=== PATIENT | female | born 1965 | race African-American/Black ===

== ENCOUNTER 2020-10-02 11:53 | Emergency (ER) | payer OTHER, SELFPAY ==
[2020-10-02] VITALS (18 sets, daily range): BP systolic 122–179; BP diastolic 89–156; PULSE 96–129; RESP 12–20; TEMP 36.4–36.6; O2SAT 94–100
--- NOTE | ~2020-10-02 | CT_ITS ---
EXAMINATION: CTA brain carotid EXAM DATE: 10/02/2020 13:30 INDICATION: Dizziness, slurred speech, unsteady gait. TECHNIQUE: Noncontrast head CT. Spiral CTA of the carotid arteries was performed with intravenous i njection 100 cc of Omnipaque 350. Axial, coronal, sagittal reformatted images reviewed. Additional r eformatted images created on dedicated 3-D workstation. NASCET comparable standard used to assess th e degree of arterial stenosis. Spiral CT angiogram cerebral arteries performed with the same intrave nous injection of contrast. Source images of the brain CTA transferred to dedicated workstation for 3 -D rotational image creation. Coronal, sagittal maximum intensity pixel images also reviewed. The d ose-length product (DLP) for this examination was 1905.70 mGy-cm. The exposure was tailored accordi ng to patient size, and iterative reconstruction (ASIR) was used as additional dose reduction techniq ue. There is no prior study for comparison. FINDINGS: There is 0% carotid stenosis bilaterally. The left vertebral artery is dominant. Carotid si phons are unremarkable. There is no carotid or vertebral basilar arterial dissection or fibromuscula r dysplasia. There are no cerebral artery aneurysms. There is symmetric cerebral artery arborization. The sagittal, transverse and sigmoid sinuses enhance normally, no venous sinus thrombosis. Internal cerebral veins also enhance normally. There is no acute intraparenchymal hemorrhage. No evidence of intraparenchymal brain mass lesion. N o evidence of acute infarction. There is no mass effect or midline shift. There is no obstructive hyd rocephalus suspected. There are no extra-axial collections. There are no calvarial acute fractures. Moderate cervical disc disease C5-6 and C6-7. Up to moderate arthropathy. Lung apices are clear. IMPRESSION: No acute carotid or intracranial findings. Reviewed, dictated and finalized at location B. BUILDER
--- NOTE | 2020-10-02 12:22 | ECG_ITS ---
Measurements Intervals [place] Rate: 120 P: 50 OR: 177 QRS: 56 QRSD: 103 T: 39 QT: 430 QTc: 608 Interpretive Statements SINUS TACHYCARDIA NONSPECIFIC T-WAVE ABNORMALITY- DIFFUSE LEADS BASELINE ARTIFACT- I, II, AVR ABNORMAL ECG Electronically Signed On 10-02-2020 12:54:53 SHOE CLERK by Jorge Luis Uribe D.O.
[2020-10-02 12:34] LABS: Basophils Percent Auto 0.5 % (0.2-1.2); Eosinophils Absolute Auto 0.3 K/mm3 (0-0.3); Eosinophils Percent Auto 3.4 % (0-4.4); Hematocrit 42.4 % (37.0-47.0); Hemoglobin 14.5 g/dL (12.0-15.0); Immature Granulocyte Absolute 0.03 K/mm3 (0.00-0.031); Immature Granulocyte Percent A 0.3 % (0-0.5); Lymphocytes Percent Auto 26.2 % (18.3-44.2); Mean Corpuscular HGB Conc 34.2 g/dl (32-36); Mean Corpuscular Hemoglobin 29.5 pg (26-34); Mean Corpuscular Volume 86.4 fl (80-100); Mean Platelet Volume 9.5 fl (7.4-10.4); Monocytes Absolute Auto 0.7 K/mm3 (0.1-0.6); Monocytes Percent Auto 7.8 % (2.6-8.5); Neutrophils Absolute Auto 5.4 K/mm3 (1.3-6.7); Neutrophils Percent Auto 61.8 % (45.5-73.1); Platelet Count Result 216 k/mm3 (150-375); Red Blood Count 4.91 M/mm3 (4.2-5.4); Red Cell Distribution Width 12.7 % (11.5-14.5); White Blood Count 8.8 K/mm3 (4.5-10.0)
[2020-10-02 12:39] LABS: Glucose Point of Care 316 (65-105)
[2020-10-02 12:44] LABS: INR 0.9; Prothrombin Time 12.4 Seconds (11.1-14.7)
[2020-10-02 12:45] LABS: Partial Thromboplastin Time 25.6 SECONDS (22.3-36.8)
[2020-10-02 12:47] LABS: Alanine Aminotransferase 27 U/L (4-35); Albumin Level 4.1 g/dL (3.5-5.1); Alkaline Phosphatase 102 U/L (38-126); Anion Gap 11 mmol/L (8-16); Aspartate Amino Transferase 27 U/L (14-36); Bilirubin,Total 0.3 mg/dL (0.2-1.3); Blood Urea Nitrogen 19 mg/dL (7-17); Calcium 9.4 mg/dL (8.4-10.2); Carbon Dioxide 22 mmol/L (22-30); Chloride 104 mmol/L (98-107); Estimated CRCL calculation 97 ml/min; Estimated Glomerular Filt Rate > 60; Glucose 326 mg/dL (65-105); Potassium 4.2 mmol/L (3.4-5.0); Sodium 137 mmol/L (137-145)
[2020-10-02 12:57] LABS: Troponin I < 0.012 ng/mL (0.000-0.034)
--- NOTE | 2020-10-02 14:08 | ED.DIZZY ---
HPI - Dizziness General Chief Complaint: Neuro Symptoms/Deficit Stated Complaint: fatigue. loss of balance Time Seen by Provider: 10/02/20 12:09 Source: patient Mode of arrival: ambulatory Limitations: no limitations History of Present Illness HPI Narrative: Patient is a 54-year-old female complaining of sudden onset of dizziness and lightheadedness and states that she had difficulty walking due to it. Patient also states that she had some slurred speech. Patient midst of taking Ambien the night before. Patient states that she is also been a lot of stress lately, has not slept well and that is why she took her Ambien. Patient denies any visual disturbance, focal weakness or numbness, chest pain, shortness of breath, bowel pain, nausea, vomiting, diarrhea, fever or chills. Related Data Home Medications Medication Instructions Recorded Confirmed Ambien 1 tablet HS 10/02/20 amitriptyline 50 mg PO HS 10/02/20 10/02/20 atorvastatin 10 mg PO DAILY 10/02/20 10/02/20 dulaglutide [Trulicity] mg SUBCUT WEEKLY 10/02/20 gabapentin 300 mg TID 10/02/20 10/02/20 ibuprofen DAILY 10/02/20 10/02/20 lisinopril-hydrochlorothiazide 1 tablet PO DAILY 10/02/20 10/02/20 metformin 1,000 mg PO BID 10/02/20 10/02/20 phentermine 37.5 mg DAILY 10/02/20 sitagliptin [Januvia] 100 mg PO DAILY 10/02/20 10/02/20 tramadol 50 mg DAILY 10/02/20 10/02/20 Allergies Allergy/AdvReac Type Severity Reaction Status Date / Time No Known Allergies Allergy Unknown Verified 10/02/20 12:21 Review of Systems Review of Systems: All systems reviewed & are unremarkable except as noted in HPI and below Constitutional: Constitutional: Denies body ache(s), Denies chills, Denies excessive sweating, Denies fatigue, Denies fever(s), Denies headache(s), Denies lethargy, Denies malaise, Denies weakness and Denies weight loss Eyes: Eyes: Denies blurry vision, Denies change in vision and Denies loss of vision ENT: Denies ear discharge, Denies headache(s), Denies lip swelling, Denies epistaxis, Denies nasal congestion, Denies neck pain, Denies throat swelling and Denies tongue swelling Cardiovascular: Cardiovascular: Denies chest pain, Denies chest pain at rest, Denies chest pain with activity, Denies diaphoresis, Denies rapid heart rate, Denies edema, Denies irregular heart rhythm, Denies lightheadedness, Denies palpitations, Denies dyspnea and Denies dyspnea on exertion Respiratory: Respiratory: Denies chest congestion, Denies cough, Denies hemoptysis, Denies dyspnea and Denies dyspnea on exertion Gastrointestinal: Gastrointestinal: Denies abdominal pain, Denies melena, Denies hematochezia, Denies diarrhea, Denies nausea, Denies vomiting and Denies hematemesis Musculoskeletal: Musculoskeletal: Denies abnormal gait, Denies deformity, Denies joint swelling, Denies limited range of motion, Denies neck pain and Denies numbness Neurologic: Denies abnormal gait, Denies confusion, Denies headache(s), Denies focal weakness, Denies loss of vision, Denies numbness, Denies Other visual disturbances, Denies Sensory deficit (Neuro) and Denies weakness Psychiatric: Psychiatric: Denies confusion, Denies depression, Denies auditory hallucinations, Denies homicidal ideation and Denies suicidal ideation Endocrine: Endocrine: Denies cold intolerance, Denies excessive sweating, Denies fatigue, Denies heat intolerance and Denies palpitations Hematologic/Lymphatic: Hematologic/Lymphatic: Denies easy bleeding and Denies easy bruising Allergic/Immunologic: Allergic/Immunologic: Denies lip swelling, Denies throat swelling and Denies tongue swelling PMFSH Comments Past medical history: Hypertension, diabetes, hyperlipidemia Family history: Hypertension diabetes Social history: Non-smoker no EtOH or drug use Exam Const: General: cooperative, healthy appearing, comfortable, no acute distress, well developed, alert and awake; No confusion Orientation/consciousness: oriented to person, oriented to place, orie
--- NOTE | 2020-10-02 15:23 | PC.NURSE ---
Patient ambulated with steady gait, patient more alert but reports fatigue at baseline lately due to trouble sleeping related to stress.
== END 2020-10-02 15:59 | disposition home or self-care (01) ==
PROVIDERS: Emergency Provider Emergency Medicine; PCP Family Medicine
DX: I16.0 Hypertensive urgency (principal); E11.65 Type 2 diabetes mellitus with hyperglycemia; R00.0 Tachycardia, unspecified; Z79.84 Long term (current) use of oral hypoglycemic drugs
CPT/HCPCS: 36415; 70496; 70498; 80053; 82948; 84484; 85025; 85610; 85730; 93005; 99284; Q9967

== ENCOUNTER 2022-05-27 07:47 | Outpatient (CLI) | payer OTHER, SELFPAY ==
--- NOTE | ~2022-05-27 | NM_ITS ---
EXAMINATION: NM hepatobiliary wo pharm DATE: 05/27/2022 13:42 INDICATION: Right upper quadrant abdominal pain. COMPARISON: None. TECHNIQUE: 4.9 mCi Tc-99m mebrofenin (Choletec) was administered intravenously. Scintigraphic images of the abdomen were obtained for one hour. Then, the patient drank 8 oz Ensure, and imaging was cont inued for 60 minutes. FINDINGS: There is normal clearance of radiotracer from the blood pool. There is homogeneous tracer u ptake by the liver. Activity progresses to the bowel and gallbladder. Gallbladder ejection fraction (GBEF) was 13%. Note that with this technique, normal GBEF >= 33%. IMPRESSION: 1. Low gallbladder ejection fraction, consistent with gallbladder dysfunction and/or chronic cholecy stitis. Reviewed, dictated and finalized at location A. IMPRESSION: 1. Low gallbladder ejection fraction, consistent with gallbladder dysfunction and/or chronic cholecystitis.
== END 2022-05-27 07:48 | disposition home or self-care (01) ==
PROVIDERS: PCP Internal Medicine; Visit Provider Nurse Practitioner
DX: K80.20 Calculus of gallbladder without cholecystitis without obstruction (principal)
CPT/HCPCS: 78226; A9537

== ENCOUNTER 2022-06-15 09:41 | Outpatient (CLI) | payer OTHER, SELFPAY ==
[2022-06-15 17:07] LABS: Free T4 Free Thyroxine 0.94 ng/mL (0.78-2.19); Vitamin D 25 Hydroxy 26.2 ng/mL
[2022-06-15 17:08] LABS: Creatinine Urine 60.9 mg/dL
[2022-06-15 17:20] LABS: MALB Creatinine Ratio < 9.9 mg/g (0-30); Microalbumin Urine Random < 6.0 mg/L (0-16.7)
[2022-06-15 17:45] LABS: Anion Gap 17 mmol/L (8-16); Blood Urea Nitrogen 23 mg/dL (7-17); Calcium 10.4 mg/dL (8.4-10.2); Carbon Dioxide 22 mmol/L (22-30); Chloride 99 mmol/L (98-107); Cholesterol 182 mg/dL (0-200); Estimated Glomerular Filt Rate > 60; Glucose 167 mg/dL (65-110); HDL Direct 65 mg/dL; Potassium 3.9 mmol/L (3.4-5.0); Sodium 138 mmol/L (137-145); Triglycerides 185 mg/dL (<150)
[2022-06-15 17:53] LABS: LDL Cholesterol Direct 63 mg/dL
[2022-06-15 18:12] LABS: Thyroid Stimulating Hormone 0.296 uIU/mL (0.465-4.680)
[2022-06-19 06:33] LABS: Triiodothyronine T3 Free 2.6 pg/mL (2.3-4.2)
[2022-06-22 15:13] LABS: Thyroid Stimulating Immunoglob <89 % baseline (<140)
== END 2022-06-15 09:42 | disposition home or self-care (01) ==
LOC: ANHWCLAB 09:42
PROVIDERS: PCP Internal Medicine; Visit Provider Internal Medicine Endocrinology, Diabetes & Metabolism
DX: E11.65 Type 2 diabetes mellitus with hyperglycemia (principal); Z79.4 Long term (current) use of insulin; E11.621 Type 2 diabetes mellitus with foot ulcer; L97.522 Non-pressure chronic ulcer of other part of left foot with fat layer exposed; R79.89 Other specified abnormal findings of blood chemistry; E55.9 Vitamin D deficiency, unspecified; Z71.3 Dietary counseling and surveillance; E04.9 Nontoxic goiter, unspecified
CPT/HCPCS: 36415; 80048; 80061; 82043; 82306; 82607; 84439; 84443; 84445; 84481

== ENCOUNTER 2022-06-30 07:21 | Outpatient (CLI) | payer OTHER, SELFPAY ==
--- NOTE | 2022-06-30 07:34 | ECG_ITS ---
Measurements Intervals [place] Rate: 89 P: 57 ND: 195 QRS: 38 QRSD: 109 T: 56 QT: 348 QTc: 425 Interpretive Statements SINUS RHYTHM POSSIBLE LEFT ATRIAL ENLARGEMENT [-0.1mV P WAVE IN V1/V2] WARNING: DATA QUALITY MAY AFFECT INTERPRETATION COMPARED TO ECG 10/02/2020 12:04:07 SINUS RHYTHM NOW PRESENT Electronically Signed On 06-30-2022 15:30:35 MIS MANAGER by Grisel Blanco M.D.
[2022-06-30 08:03] LABS: Alanine Aminotransferase 39 U/L (6-35); Alkaline Phosphatase 103 U/L (38-126); Amylase 112 U/L (30-110); Anion Gap 8 mmol/L (8-16); Aspartate Amino Transferase 27 U/L (14-36); Bilirubin,Total 0.3 mg/dL (0.2-1.3); Blood Urea Nitrogen 18 mg/dL (7-17); Calcium 9.6 mg/dL (8.4-10.2); Carbon Dioxide 26 mmol/L (22-30); Chloride 103 mmol/L (98-107); Estimated Glomerular Filt Rate > 60; Glucose 214 mg/dL (65-110); Lipase 225 U/L (23-300); Potassium 4.4 mmol/L (3.4-5.0); Sodium 137 mmol/L (137-145)
== END 2022-06-30 07:22 | disposition home or self-care (01) ==
LOC: ANHSURGERY 07:23
PROVIDERS: PCP Nurse Practitioner; Visit Provider Surgery
DX: Z01.818 Encounter for other preprocedural examination (principal); E11.9 Type 2 diabetes mellitus without complications; I10 Essential (primary) hypertension; K80.10 Calculus of gallbladder with chronic cholecystitis without obstruction
CPT/HCPCS: 36415; 80048; 80076; 82150; 83690; 86850; 86900; 86901; 93005

== ENCOUNTER 2022-07-01 00:51 | Day surgery (SDC) | payer OTHER, SELFPAY ==
[2022-06-26 09:29] VITALS: BMI 40.4
--- NOTE | 2022-06-26 09:37 | PC.NURSE ---
Report to the Outpatient Waiting Room, entrance under the green pavilion located off [facility], at time 8:30 on date 07/01/22. Planned Procedure Time: 10:30. Time changes happen often and if your time is changed the preop area will call you the afternoon before. - You and your visitor will be asked to self-screen and do not enter if you have any COVID symptoms. - Only one visitor is requested with a max of two and NO children visitors are allowed at this time. - The patient visitor may be requested to leave or wait in car when not with patient due to distancing restrictions. - A mask is optional within the hospital. Patients may have clear liquids (water, carbonated beverages, clear teas, apple juice) until 3 hours prior to surgery (7:30) with a maximum of 20 ounces. - No food from midnight until time of surgery Take the following medications with a SIP of water the morning of surgery: GABAPENTIN Medications to discontinue per physician: VITAMINS Date to take last dose: 06/27/22 Please no make-up, nail cymraes, hairspray, perfume, deodorant, or body powder the day of surgery. No jewelry (including any body piercings) or valuables the day of surgery, leave them at home. Please take a shower or bath the night before, or the morning of, surgery with an antibacterial soap (HIBICLENS). Wear comfortable, loose fitting clothing. - Jewelry must be removed prior to entering the operating room. Rings and piercings that are not removed may be cut off. - The hospital will not accept responsibility for valuables. - Please leave all valuables, including medications, at home the day of surgery. If you are going home after surgery, a licensed fork truck driver must drive you home. - NO public transportation without another adult if you receive anesthesia. - We recommend that an adult stay with you for 24 hours following discharge. - We also recommend that you do not drive, make important decision, drink alcoholic beverages, or take any drugs that were not prescribed by your health care provider for at least 24 hours after your discharge time. Follow any additional instructions given to you from your surgeon. If you or anyone in your household have experienced Covid symptoms in the past week, please notify your surgeon or the nurse liaison at the phone number below for possible testing. Telephone instructions given to PT - ITZ SHAYE and asked if any additional questions and then verbalized understanding. Patient advised to call surgeon office or pre surgery nurse liaison [phone] if any additional questions.
[2022-07-01] VITALS (8 sets, daily range): BP systolic 115–153; BP diastolic 70–97; PULSE 70–91; RESP 16–20; TEMP 36.5–36.6; O2SAT 96–100
--- NOTE | ~2022-07-01 | XR_ITS ---
XR cholangiogram surg 1st inj DATE: 07/01/2022 12:12 INDICATION: Stacy cholecystectomy TECHNIQUE: 2 series of spot C-arm images of the right upper quadrant during injection of contrast mat erial into the cystic duct remnant at laparoscopic cholecystectomy 28.9 seconds fluoroscopy time 24.28 mGy COMPARISON: None FINDINGS: No stricture or obstruction of the common bile duct or persistent filling defect is evident . Contrast material flows freely into the duodenum. IMPRESSION: No significant abnormality Reviewed, dictated and finalized at Location A. Reviewed, dictated and finalized at location B. TRONICS ENGINEER IMPRESSION: No significant abnormality
[2022-07-01] MEDS: KETOROLAC 15 MG/ML VIAL (*BKC) IV PUSH (09:00)
[2022-07-01] MEDS: ACETAMINOPHEN 500 MG TABLET 1000 MG PO (09:00)
[2022-07-01] MEDS: LACTATED RINGERS 1,000 ML 30 ML IV CONT ×2 (09:00→11:57)
--- NOTE | 2022-07-01 09:15 | WPDANESEPPF ---
Anes - Initial Pre Proc Eval Procedure: Operation Date: 07/01/22 10:30 Proposed Procedures p Laparoscopic Cholecystectomy with Intraoperative Cholangiogram - Karthik Conde MD Date/Time: 07/01/22 09:15 Surgeon: Karthik Conde MD Pre Op Diagnosis: chronic cholecystitis with stones Patient Data Age: 56 Gender: F Height: 1.75 m Weight: 124.3 kg Allergies Allergy/AdvReac Type Severity Reaction Status Date / Time No Known Allergies Allergy Unknown Verified 06/26/22 09:25 Home Medications Medication Instructions Recorded Confirmed Type atorvastatin 10 mg tablet 10 mg PO DAILY 10/02/20 06/26/22 History canagliflozin 300 mg tablet See Rx Instructions .Route 01/29/22 06/26/22 Rx (Invokana) .COMPLEX #90 tabs lisinopril 20 See Rx Instructions .Route 01/29/22 06/26/22 Rx mg-hydrochlorothiazide 12.5 mg .COMPLEX #90 tabs tablet cyclobenzaprine 10 mg tablet See Rx Instructions .Route 03/24/22 06/26/22 Rx .COMPLEX #30 tabs amitriptyline 50 mg tablet See Rx Instructions .Route 03/31/22 06/26/22 Rx .COMPLEX #90 tabs metformin 500 mg tablet,extended See Rx Instructions .Route 03/31/22 06/26/22 Rx release 24 hr .COMPLEX #360 tabs ibuprofen 800 mg tablet See Rx Instructions .Route 05/21/22 06/26/22 Rx .COMPLEX #30 tabs blood-glucose sensor (FreeStyle #1 ea 06/15/22 06/15/22 Rx Mark 3 Sensor device) gabapentin 600 mg tablet 600 mg PO TID 90 days #270 tabs 06/15/22 06/26/22 Rx glucose 4 gram chewable tablet 16 g PO Q15M PRN hypoglycemia #90 06/15/22 06/26/22 Rx (Dex4 Glucose) tabs insulin degludec 100 unit/mL (3 30 unit (0.3 mL) subcut QHS 90 06/15/22 06/26/22 Rx mL) subcutaneous pen (Tresiba days #27 mL FlexTouch U-100 insulin) insulin lispro 200 unit/mL (3 mL) See Rx Instructions subcut TID #27 06/15/22 06/26/22 Rx subcutaneous pen (Humalog KwikPen mL U-200 Insulin) semaglutide 1 mg/dose (4 mg/3 mL) 1 mg (0.75 mL) subcut WEEKLY 90 06/15/22 06/26/22 Rx subcutaneous pen injector (Ozempic) days #9.75 mL zolpidem 10 mg tablet (Ambien) 10 mg PO QHS PRN insomnia #30 tabs 06/16/22 06/26/22 Rx pen needle, diabetic 32 gauge x #500 ea 06/17/22 Rx (TRUEplus Pen Needle) cholecalciferol (vitamin D3) 1,250 1,250 mcg PO WEEKLY 14 weeks #14 06/28/22 Rx mcg (50,000 unit) tablet tabs Patient hx anesthesia problems: none Family hx anesthesia problems: none Results Review: All pre-operative results and documents have been reviewed as part of the pre-operative evaluation. [facility] Past Medical History Medical History Arthritis Diabetes mellitus Hyperlipidemia Hypertension Hyperthyroidism Obesity Surgical History Surgical History Fibroid tumor History excision uterine fibroid tumor History of History of partial hysterectomy Family History Family History Mother Carcinoma of colon with mets to the liver and brain Sibling Asthma Esophageal cancer Bone cancer Breast cancer Epilepsy Malignant neoplasm of prostate Other Hypertension Social History Social History Smoking status: Never smoker Alcohol intake: former Alcohol use details: rare, socially Substance use: never Substance use type: does not use Living arrangements: with family Additional living arrangements comments: SON Spiritual care concerns: No Anes - Eval Final PreProcedure Day of Procedure 07/01/22 09:15 Patient weight: morbidly obese Heart: regular rate and rhythm Lungs: clear to auscultation Airway: Mallampati scale class II Neurological: alert and oriented Last oral intake: >/= 8 hours ASA classification: III Emergent: no Anesthetic plan: proceed Anesthesia type and monitoring: general ETT and standard monitoring Res
[2022-07-01 09:39] LABS: Glucose Point of Care 186 mg/dl (65-105)
--- NOTE | 2022-07-01 09:55 | WPDHPUPDATE1 ---
History and Physical Update Update Date/Time: 07/01/22 09:55 History and Physical has been reviewed, including an updated exam of the patient. There are NO changes in the patient's condition. Risks, benefits, and alternatives have been discussed and questions answered. Patient agrees to proceed with procedure.
[2022-07-01] MEDS: SCOPOLAMINE 1.5 MG PATCH TRANSDERM (10:07)
[2022-07-01] MEDS: ceFAZolin 3 GM/D5W 100 ML 100 ML IVPB (10:16)
[2022-07-01] MEDS: LIDO 1%/EPINEPHRINE/PF 1:200,000 30 ML VIAL XX (10:57)
[2022-07-01 12:12] LABS: Glucose Point of Care 213 mg/dl (65-105)
--- NOTE | 2022-07-01 12:16 | W.PM.PROC2 ---
Procedure Note - Detailed Date of Procedure 07/01/22 Pre-op Diagnosis chronic cholecystitis with stones Post-op Diagnosis Same Procedure Performed Laparoscopic cholecystectomy with intraoperative cholangiogram Surgeon Karthik Conde MD Chemical Research Worker Chloé HERNANDEZ, Marie Kim TEAROOM HOST Anesthesia General and Local Indications Patient is a 56-year-old woman who has had postprandial pain for 12-18 months. However in the last couple of months this has gotten worse and was in the right upper quadrant. It was particularly bad after fatty foods. She had a gallbladder ultrasound which showed gallstones and also a 10 mm common bile duct. Liver function tests were normal. She is taken to surgery now for laparoscopic cholecystectomy with intraoperative cholangiogram. Findings The gallbladder had evidence of chronic inflammation. There was no biliary ductal dilatation. Liver appeared normal. Intraoperative cholangiogram showed prompt duodenal filling and no filling defects to suggest common bile duct stones. Description of Procedure Patient was taken to surgery and induced into general anesthesia. The abdomen is prepped and draped. Trocars were placed in the usual fashion using applied Medical optical trocars and local anesthetic. The gallbladder was decompressed with a laparoscopic aspirator. It was retracted anterosuperiorly. Dissection was carried out in the cholecystohepatic triangle. The cystic duct and cystic artery were dissected. The gallbladder was dissected off the liver its lower 3rd. Critical view was achieved. I then securely clipped and divided the cystic artery. I dissected out nearly all of the cystic duct. A clip was placed in the distal gallbladder just above the cystic duct. I then used cystic duct scissors and made a small opening in the proximal cystic duct. Cholangiogram catheter was then threaded into the cystic duct. C-arm fluoroscopy was used and cholangiogram was obtained. Cine fluoroscopy showed a negative cholangiogram. Radiology reviewed the films and concurred. The cholangiogram catheter was removed. We securely clipped and divided the cystic duct. The gallbladder was then carefully dissected free of its remaining attachments to the liver. It was placed in an Endo-Catch bag. It was retrieved through the 10 11 epigastric trocar site. There was a large stone in the gallbladder and I had to slightly enlarge the epigastric trocar site to accommodate the gallbladder with the stone. Once the gallbladder was removed, we replaced the epigastric trocar and used a towel clip to occlude the site so that we could reinsufflated. We then reviewed the gallbladder fossa and right upper quadrant. The area was irrigated and suctioned repeatedly. All looked good with no evidence of bleeding or bile leakage. We then evacuated CO2 and removed the trocar sleeves. The fascia at the epigastric port site was closed with an 0 Vicryl suture. The subcu was closed with 3-0 Vicryl suture. All skin wounds were closed with subcuticular 4-0 Monocryl skin suture. The wounds were dressed with Exofin surgical adhesive. Patient was awakened and taken to recovery in good condition. Sponge and needle counts were correct x2. Estimated Blood Loss -5.0 Drains No Packing No Pathology Yes (Gallbladder) Complications No immediate complications Condition Stable Disposition PACU [facility] Billing Surgery - Charge Forward: Surgery Billing (Laparoscopic cholecystectomy with intraoperative cholangiogram)
[2022-07-01] MEDS: oxyCODONE HCL (*CRX) 5 MG TAB IR PO (13:15)
== END 2022-07-01 14:30 | disposition home or self-care (01) ==
PROVIDERS: PCP Nurse Practitioner; Visit Provider Surgery
PROC: 0FT44ZZ Resection of Gallbladder, Percutaneous Endoscopic Approach (ICD-10-PCS; CPT 47562; principal; 2022-07-01 10:30)
DX: K80.10 Calculus of gallbladder with chronic cholecystitis without obstruction (principal); E11.9 Type 2 diabetes mellitus without complications; E78.5 Hyperlipidemia, unspecified; I10 Essential (primary) hypertension; E66.01 Morbid (severe) obesity due to excess calories; Z68.41 Body mass index [BMI] 40.0-44.9, adult; Z79.84 Long term (current) use of oral hypoglycemic drugs; Z79.4 Long term (current) use of insulin; Z79.899 Other long term (current) drug therapy
CPT/HCPCS: 47563; 74300; 82948; 88304; A9270; C1713; J0330; J0690; J1100; J1885; J2250; J2370; J2405; J2704; J2710; J3010; J7120

== ENCOUNTER 2022-07-23 15:00 | Outpatient (RCR) | payer OTHER, SELFPAY | END 2022-10-12 13:49 | disposition home or self-care (01) | LOC: ANHDMC 15:00 | PROVIDERS: PCP Internal Medicine; Visit Provider Internal Medicine Endocrinology, Diabetes & Metabolism | DX: E11.65 Type 2 diabetes mellitus with hyperglycemia (principal); Z79.4 Long term (current) use of insulin | CPT/HCPCS: 99199 ==

== ENCOUNTER 2022-08-10 15:00 | Outpatient (CLI) | payer OTHER, SELFPAY ==
--- NOTE | ~2022-08-10 | XR_ITS ---
XR lumbar spine 2-3V 08/10/2022 15:19 Indication: Low back pain Procedure: 3 views lumbar spine Comparison: No prior studies for comparison. Findings: Vertebral body heights are maintained. There is disc narrowing at L4-5 and L5-S1 with vacuu m phenomena. There is advanced multilevel facet hypertrophy. No acute fracture or traumatic malalignm ent. No evidence for spondylolisthesis. Impression: 1: Severe lumbar spondylosis. Reviewed, dictated and finalized at location A. NESS TECHNOLOGY ANALYST Impression: 1: Severe lumbar spondylosis.
== END 2022-08-10 15:01 | disposition home or self-care (01) ==
LOC: ANHIMG 15:03
PROVIDERS: PCP Internal Medicine; Visit Provider Nurse Practitioner
DX: M47.816 Spondylosis without myelopathy or radiculopathy, lumbar region (principal); M54.50 Low back pain, unspecified
CPT/HCPCS: 72100

== ENCOUNTER 2022-09-07 10:53 | Outpatient (CLI) | payer OTHER, SELFPAY ==
--- NOTE | ~2022-09-07 | MR_ITS ---
MRI of the lumbar spine Clinical History: Back pain Technique: Axial T2-weighted images, and sagittal T1-weighted, T2-weighted, and T2 fat-sat images wer e acquired. Findings: There is no fracture or subluxation of the lumbar spine. Vertebral bodies maintain normal h eight and prominent. There are reactive marrow signal changes about the L4-L5 and L5-S1 disc spaces d ue to underlying degenerative disc disease. At L1-L2, there is no disc bulge or herniation. There is facet joint degenerative change. No spinal c anal stenosis or neural foraminal narrowing. At L2-L3, there is no disc bulge or herniation. There is facet joint degenerative change. No spinal c anal stenosis or neural foraminal narrowing. At L3-L4, there is minimal disc bulge with advanced facet joint arthropathy. No spinal canal stenosis or neural foraminal narrowing. At L4-L5, there is disc bulge and advanced facet arthropathy, with advanced degenerative disc narrowi ng. There is lateral recess stenosis bilaterally. There is moderate to advanced bilateral neural fora priya narrowing. No aaron spinal canal stenosis otherwise. At L5-S1, there is diffuse disc bulge with facet arthropathy. No spinal canal stenosis. There is aquilino re bilateral neural foraminal narrowing. Paravertebral soft tissues are unremarkable. Impression: Disc bulge and facet arthropathy L4-L5 resulting in lateral recess stenosis and moderate to advanced bilateral neural foraminal narrowing. Disc bulge and facet arthropathy at L5-S1, resulting in severe bilateral neural foraminal narrowing. Reviewed, dictated and finalized at [facility]. 4TH GRADE MATH TEACHER Impression: Disc bulge and facet arthropathy L4-L5 resulting in lateral recess stenosis and moderate to advanced bilateral neural foraminal narrowing. Disc bulge and facet arthropathy at L5-S1, resulting in severe bilateral neural foraminal narrowing.
== END 2022-09-07 10:54 | disposition home or self-care (01) ==
PROVIDERS: PCP Internal Medicine; Visit Provider Nurse Practitioner
DX: M47.817 Spondylosis without myelopathy or radiculopathy, lumbosacral region (principal)
CPT/HCPCS: 72148

== ENCOUNTER 2022-10-21 00:44 | Day surgery (SDC) | payer OTHER, SELFPAY ==
[2022-09-29 09:36] VITALS: BMI 40.7
[2022-09-29 09:43] VITALS: BMI 40.7
--- NOTE | 2022-10-20 17:57 | PM.HPGS ---
History of Present Illness History of Present Illness Consent: Risks, benefits, and alternatives have been discussed and questions answered. Patient agrees to proceed with procedure. Chief complaint: neoplasm screening Narrative: Ivania Feldman is a 57 year old female referred for colon cancer screening. Review of Systems Review of Systems: All systems reviewed & are unremarkable except as noted in HPI and below PMFSH Past Medical History Medical History Arthritis Cervicalgia Chronic cholecystitis with calculus Diabetic foot ulcer associated with type 2 diabetes mellitus, with fat layer exposed Dysfunctional gallbladder Hyperlipidemia Hypersomnolence Hypertension Hyperthyroidism Morbid obesity with BMI of 40.0-44.9, adult Obesity Type 2 diabetes mellitus with hyperglycemia, with long-term current use of insulin Vitamin D deficiency Surgical History Surgical History Fibroid tumor History excision uterine fibroid tumor History of History of partial hysterectomy Hx laparoscopic cholecystectomy 07/01/22 Laparoscopic cholecystectomy with intraoperative cholangiogram Family History Family History Mother Carcinoma of colon with mets to the liver and brain Sibling Asthma Esophageal cancer Bone cancer Breast cancer Epilepsy Malignant neoplasm of prostate Other Hypertension Other Alcoholism Cerebrovascular accident Social History Social History Smoking status: Never smoker Alcohol intake: former Alcohol use details: rare, socially Substance use: never Substance use type: does not use Lack of Transportation: No Lack of Food: Never True Concerned About Future Housing: YES Difficulty Paying Gas/Electric Bills: No Difficulty Paying for Meds: No Currently Unemployed: YES Education: High School Diploma/GED Difficulty w/ Childcare or Family Care: No Living arrangements: with family Additional living arrangements comments: SON Gender identity (if verbalized by the patient): Female Sexual Orientation (if Verbalized by the Patient): Straight or Heterosexual Spiritual care concerns: No Meds Home Medications and Allergies Home Medications Medication Instructions Recorded Confirmed Type atorvastatin 10 mg tablet 10 mg PO DAILY 10/02/20 10/19/22 History amitriptyline 50 mg tablet See Rx Instructions .Route 03/31/22 10/19/22 Rx .COMPLEX #90 tabs gabapentin 600 mg tablet 600 mg PO TID 90 days #270 tabs 06/15/22 10/19/22 Rx insulin degludec 100 unit/mL (3 30 unit (0.3 mL) subcut QHS 90 06/15/22 10/19/22 Rx mL) subcutaneous pen (Tresiba days #27 mL FlexTouch U-100 insulin) insulin lispro 200 unit/mL (3 mL) See Rx Instructions subcut TID #27 06/15/22 10/19/22 Rx subcutaneous pen (Humalog KwikPen mL U-200 Insulin) pen needle, diabetic 32 gauge x #500 ea 06/17/22 08/26/22 Rx (TRUEplus Pen Needle) lisinopril 20 See Rx Instructions .Route 07/07/22 10/19/22 Rx mg-hydrochlorothiazide 12.5 mg .COMPLEX #90 tabs tablet canagliflozin 300 mg tablet See Rx Instructions .Route 08/05/22 10/19/22 Rx (Invokana) .COMPLEX #90 tabs metformin 500 mg tablet,extended See Rx Instructions .Route 09/16/22 10/19/22 Rx release 24 hr .COMPLEX #360 tabs zolpidem 10 mg tablet (Ambien) 10 mg PO QHS PRN insomnia #30 tabs 09/16/22 10/19/22 Rx semaglutide 1 mg/dose (4 mg/3 mL) 1 mg subcut WEEKLY 09/29/22 10/19/22 History subcutaneous pen injector (Ozempic) sitagliptin phosphate 100 mg 100 mg PO DAILY 09/29/22 10/19/22 History tablet (Januvia) baclofen 10 mg tablet 10 mg PO BID PRN muscle spasticity 10/02/22 10/19/22 Rx #45 tabs ibuprofen 800 mg tablet 800 mg PO DAILY PRN pain #30 tabs 10/02/22 10/19/22 Rx tramadol 50 mg tablet 50
[2022-10-21 09:36] VITALS: BP 118/81; PULSE 95; RESP 18; TEMP 36.8; O2SAT 96
[2022-10-21] MEDS: LACTATED RINGERS 1,000 ML 150 ML IV CONT (09:48)
--- NOTE | 2022-10-21 09:56 | WPDANESEPPF ---
Anes - Initial Pre Proc Eval Procedure: Operation Date: 10/21/22 11:00 Proposed Procedures p Screening Colonoscopy - Radu Sheriff MD Date/Time: 10/21/22 09:56 Surgeon: Radu Sheriff MD Pre Op Diagnosis: neoplasm screening Patient Data Age: 57 Gender: F Height: 1.77 m Weight: 128 kg Last Vital Signs Temp 98.2 F 10/21/22 09:36 Pulse 95 10/21/22 09:36 Resp 18 10/21/22 09:36 BP 118/81 10/21/22 09:36 Pulse Ox 96 10/21/22 09:36 O2 Del Method Room Air 10/21/22 09:36 Allergies Allergy/AdvReac Type Severity Reaction Status Date / Time No Known Allergies Allergy Unknown Verified 10/21/22 09:36 Home Medications Medication Instructions Recorded Confirmed Type atorvastatin 10 mg tablet 10 mg PO DAILY 10/02/20 10/19/22 History amitriptyline 50 mg tablet See Rx Instructions .Route 03/31/22 10/19/22 Rx .COMPLEX #90 tabs gabapentin 600 mg tablet 600 mg PO TID 90 days #270 tabs 06/15/22 10/19/22 Rx insulin degludec 100 unit/mL (3 30 unit (0.3 mL) subcut QHS 90 06/15/22 10/19/22 Rx mL) subcutaneous pen (Tresiba days #27 mL FlexTouch U-100 insulin) insulin lispro 200 unit/mL (3 mL) See Rx Instructions subcut TID #27 06/15/22 10/19/22 Rx subcutaneous pen (Humalog KwikPen mL U-200 Insulin) pen needle, diabetic 32 gauge x #500 ea 06/17/22 08/26/22 Rx /32 (TRUEplus Pen Needle) lisinopril 20 See Rx Instructions .Route 07/07/22 10/19/22 Rx mg-hydrochlorothiazide 12.5 mg .COMPLEX #90 tabs tablet canagliflozin 300 mg tablet See Rx Instructions .Route 08/05/22 10/19/22 Rx (Invokana) .COMPLEX #90 tabs metformin 500 mg tablet,extended See Rx Instructions .Route 09/16/22 10/19/22 Rx release 24 hr .COMPLEX #360 tabs zolpidem 10 mg tablet (Ambien) 10 mg PO QHS PRN insomnia #30 tabs 09/16/22 10/19/22 Rx semaglutide 1 mg/dose (4 mg/3 mL) 1 mg subcut WEEKLY 09/29/22 10/19/22 History subcutaneous pen injector (Ozempic) sitagliptin phosphate 100 mg 100 mg PO DAILY 09/29/22 10/19/22 History tablet (Januvia) baclofen 10 mg tablet 10 mg PO BID PRN muscle spasticity 10/02/22 10/19/22 Rx #45 tabs ibuprofen 800 mg tablet 800 mg PO DAILY PRN pain #30 tabs 10/02/22 10/19/22 Rx tramadol 50 mg tablet 50 mg PO BID PRN pain #20 tabs 10/02/22 10/19/22 Rx Patient hx anesthesia problems: none Family hx anesthesia problems: none Results Review: All pre-operative results and documents have been reviewed as part of the pre-operative evaluation. FORMERLY [facility] Past Medical History Medical History Arthritis Cervicalgia Chronic cholecystitis with calculus Diabetic foot ulcer associated with type 2 diabetes mellitus, with fat layer exposed Dysfunctional gallbladder Hyperlipidemia Hypersomnolence Hypertension Hyperthyroidism Morbid obesity with BMI of 40.0-44.9, adult Obesity Type 2 diabetes mellitus with hyperglycemia, with long-term current use of insulin Vitamin D deficiency Surgical History Surgical History Fibroid tumor History excision uterine fibroid tumor History of History of partial hysterectomy Hx laparoscopic cholecystectomy 07/01/22 Laparoscopic cholecystectomy with intraoperative cholangiogram Family History Family History Mother Carcinoma of colon with mets to the liver and brain Sibling Asthma Esophageal cancer Bone cancer Breast cancer Epilepsy Malignant neoplasm of prostate Other Hypertension Other Alcoholism Cerebrovascular accident Social History Social History Smoking status: Never smoker Alcohol intake: former Alcohol use details: rare, socially Substance use: never Substance use type: does not use Lack of Transportation: No Lack of Food: Never True Concerned About Future Housing: YES Di
[2022-10-21 10:39] VITALS: BP 119/75; PULSE 92; RESP 25; O2SAT 100
[2022-10-21 10:49] VITALS: BP 116/79; PULSE 87; RESP 19; O2SAT 100
[2022-10-21 10:59] VITALS: BP 117/86; PULSE 85; RESP 20; O2SAT 100
--- NOTE | 2022-10-21 11:14 | SUR.PHASEII ---
350mls of LR received through out total time of being in endoscopy.
== END 2022-10-21 11:15 | disposition home or self-care (01) ==
PROVIDERS: PCP Internal Medicine; Visit Provider Internal Medicine Gastroenterology
PROC: 0DJD8ZZ Inspection of Lower Intestinal Tract, Via Natural or Artificial Opening Endoscopic (ICD-10-PCS; CPT 45378; principal; 2022-10-21 11:00)
DX: Z12.11 Encounter for screening for malignant neoplasm of colon (principal); K57.30 Diverticulosis of large intestine without perforation or abscess without bleeding; K64.8 Other hemorrhoids; I10 Essential (primary) hypertension; E11.9 Type 2 diabetes mellitus without complications; E66.01 Morbid (severe) obesity due to excess calories; Z68.41 Body mass index [BMI] 40.0-44.9, adult; Z79.4 Long term (current) use of insulin; Z79.84 Long term (current) use of oral hypoglycemic drugs; Z79.899 Other long term (current) drug therapy
CPT/HCPCS: 45378; J2704; J7120

== ENCOUNTER 2023-06-15 09:04 | Outpatient (CLI) | payer OTHER, SELFPAY ==
[2023-06-15 19:46] LABS: Alanine Aminotransferase 39 U/L (6-35); Albumin Level 4.2 g/dL (3.5-5.1); Alkaline Phosphatase 102 U/L (38-126); Anion Gap 12 mmol/L (8-16); Aspartate Amino Transferase 41 U/L (14-36); Bilirubin,Total 0.4 mg/dL (0.2-1.3); Blood Urea Nitrogen 20 mg/dL (7-17); Calcium 10.2 mg/dL (8.4-10.2); Carbon Dioxide 24 mmol/L (22-30); Chloride 105 mmol/L (98-107); Cholesterol 157 mg/dL (0-200); Estimated Glomerular Filt Rate > 60; Glucose 147 mg/dL (65-110); HDL Direct 65 mg/dL; Potassium 4.7 mmol/L (3.4-5.0); Sodium 141 mmol/L (137-145); Triglycerides 112 mg/dL (<150)
[2023-06-15 19:52] LABS: Basophils Absolute Auto 0.1 K/mm3 (0.0-0.1); Basophils Percent Auto 0.7 % (0.2-1.2); Eosinophils Absolute Auto 0.3 K/mm3 (0-0.3); Eosinophils Percent Auto 3.3 % (0-4.4); Hematocrit 44.8 % (37.0-47.0); Hemoglobin 14.4 g/dL (12.0-15.0); Immature Granulocyte Absolute 0.02 K/mm3 (0.00-0.031); Immature Granulocyte Percent A 0.2 % (0-0.5); Lymphocytes Absolute Auto 2.19 K/mm3 (0.9-3.2); Lymphocytes Percent Auto 24.3 % (18.3-44.2); Mean Corpuscular HGB Conc 32.1 g/dl (32-36); Mean Corpuscular Hemoglobin 29.1 pg (26-34); Mean Corpuscular Volume 90.7 fl (80-100); Mean Platelet Volume 9.5 fl (7.4-10.4); Monocytes Absolute Auto 0.8 K/mm3 (0.1-0.6); Monocytes Percent Auto 8.4 % (2.6-8.5); Neutrophils Absolute Auto 5.7 K/mm3 (1.3-6.7); Neutrophils Percent Auto 63.1 % (45.5-73.1); Platelet Count Result 235 k/mm3 (150-375); Red Blood Count 4.94 M/mm3 (4.2-5.4); Red Cell Distribution Width 14.4 % (11.5-14.5)
[2023-06-15 20:05] LABS: Vitamin D 25 Hydroxy 32.4 ng/mL
[2023-06-15 20:07] LABS: LDL Cholesterol Direct 61 mg/dL
[2023-06-15 20:15] LABS: Thyroid Stimulating Hormone 0.296 uIU/mL (0.465-4.680)
[2023-06-15 22:09] LABS: Hemoglobin A1C 7.8 % (<5.7)
== END 2023-06-15 09:05 | disposition home or self-care (01) ==
LOC: ANHGOSHLAB 09:06
PROVIDERS: PCP Internal Medicine; Visit Provider Nurse Practitioner
DX: E55.9 Vitamin D deficiency, unspecified (principal); R79.89 Other specified abnormal findings of blood chemistry; E11.9 Type 2 diabetes mellitus without complications
CPT/HCPCS: 36415; 80053; 80061; 82306; 83036; 84443; 85025

== ENCOUNTER 2024-07-03 12:15 | Inpatient (IN) | payer OTHER, SELFPAY ==
--- NOTE | ~2024-07-03 | MR_ITS ---
EXAMINATION: MR foot LT wo/w con DATE: 07/04/2024 12:27 INDICATION: TECHNIQUE: Magnetic resonance imaging (MRI) of the left fore and midfoot was performed without and wi th 20 mL Multihance intravenous contrast. Sequences included axial T1-weighted FSE, axial T2-weighted FS FSE, coronal T1-weighted FSE, coronal T2-weighted FS FSE, sagittal T1-weighted FSE and sagittal T 2-weighted FS FSE. Precontrast axial T1-weighted FS FSE and post contrast axial, sagittal and coronal T1-weighted FS FSE were also obtained. COMPARISON: Left foot radiographs dated 07/13/2024 FINDINGS: There is increased fluid signal and loss of T1 marrow fat signal throughout the proximal to distal ph alanges of the fifth toe consistent with osteomyelitis. There is surrounding soft tissue edema and en hancement at the fifth toe. There is normal marrow signal throughout the remainder of the visualized bones. No fracture. Mild polyarticular osteoarthritis involving multiple joints the mid and forefoot. Physiologic amount fluid in the joint spaces. No abscess or other abnormal fluid collections. Also f issuring of the dorsum of the forefoot with mild likely reactive subcutaneous edema. There is fatty a trophy with mild increased T2 signal and enhancement involving the deeper intrinsic musculature of th e foot suggesting acute on chronic denervation change. IMPRESSION: 1. Osteomyelitis involving the fifth proximal to distal phalanges. Reviewed, dictated and finalized at location A. R REBUILDER
--- NOTE | ~2024-07-03 | XR_ITS ---
EXAM: XR foot LT min 3V DATE: 07/03/2024 14:20 HISTORY: 5th toe wound . COMPARISON: None available. FINDINGS: Normal mineralization. No fracture or dislocation. No lytic or blastic lesion. Moderate de generative change at multiple midfoot joints. Chronic appearing periosteal elevation/erosion along th e lateral aspect of the fifth middle phalanx. Diffuse sclerosis in the fifth digit. Soft tissue swell ing with a lateral soft tissue defect over the fifth digit. IMPRESSION: Findings concerning for osteomyelitis involving the fifth digit. Recommend MRI of the toe s without and with contrast for further evaluation. Reviewed, dictated and finalized at location K. DRY TECHNICIAN IMPRESSION: Findings concerning for osteomyelitis involving the fifth digit. Re commend MRI of the toes without and with contrast for further evaluation.
[2024-07-03 12:23] VITALS: BP 134/83; PULSE 100; RESP 18; TEMP 36.4; O2SAT 100
[2024-07-03 14:38] LABS: Basophils Absolute Auto 0.1 K/mm3 (0.0-0.1); Basophils Percent Auto 0.7 % (0.2-1.2); Eosinophils Absolute Auto 0.3 K/mm3 (0-0.3); Eosinophils Percent Auto 3.3 % (0-4.4); Hematocrit 45.9 % (37.0-47.0); Immature Granulocyte Absolute 0.04 K/mm3 (0.00-0.031); Immature Granulocyte Percent A 0.4 % (0-0.5); Lymphocytes Absolute Auto 2.06 K/mm3 (0.9-3.2); Lymphocytes Percent Auto 20.8 % (18.3-44.2); Mean Corpuscular HGB Conc 32.7 g/dl (32-36); Mean Corpuscular Hemoglobin 28.7 pg (26-34); Mean Corpuscular Volume 87.9 fl (80-100); Mean Platelet Volume 9.1 fl (7.4-10.4); Monocytes Absolute Auto 0.7 K/mm3 (0.1-0.6); Monocytes Percent Auto 6.6 % (2.6-8.5); Neutrophils Absolute Auto 6.7 K/mm3 (1.3-6.7); Neutrophils Percent Auto 68.2 % (45.5-73.1); Platelet Count Result 340 k/mm3 (150-375); Red Blood Count 5.22 M/mm3 (4.2-5.4); Red Cell Distribution Width 13.6 % (11.5-14.5); White Blood Count 9.9 K/mm3 (4.5-10.0)
[2024-07-03 14:49] LABS: Alanine Aminotransferase 22 U/L (6-35); Albumin Level 4.4 g/dL (3.5-5.1); Alkaline Phosphatase 84 U/L (38-126); Anion Gap 9 mmol/L (4-12); Aspartate Amino Transferase 22 U/L (14-36); Bilirubin,Total 0.4 mg/dL (0.2-1.3); Blood Urea Nitrogen 22 mg/dL (7-17); CRP 4.4 mg/dL (<1.0); Calcium 10.8 mg/dL (8.4-10.2); Carbon Dioxide 27 mmol/L (22-30); Chloride 106 mmol/L (98-107); Estimated CRCL calculation 86 ml/min; Estimated Glomerular Filt Rate > 60; Glucose 73 mg/dL (65-110); Potassium 3.8 mmol/L (3.4-5.0); Sodium 142 mmol/L (137-145)
--- NOTE | 2024-07-03 14:57 | ED_ITS ---
HPI - Wound/Laceration General Chief Complaint: Wound/Laceration Stated Complaint: sore on foot Time Seen by Provider: 07/03/24 13:44 History of Present Illness HPI narrative: Patient is a 58-year-old female who presents ER with concerns for left foot infection. She is diabetic and noticed a wound to her left 5th digit 5 days ago. She has had increased swelling and redness as well as drainage from the area. No fevers or chills or sweats. She does not see a loss prevention representative currently. Related Data Home Medications Medication Instructions Recorded Confirmed glucagon 1 mg/0.2 mL subcutaneous 1 mg subcut PRN PRN Hypoglycemia 07/03/24 07/03/24 auto-injector (Gvoke HypoPen 2-Pack) insulin degludec 100 unit/mL (3 30 unit subcut HS 07/03/24 07/03/24 mL) subcutaneous pen (Tresiba FlexTouch U-100 insulin) lisinopril 20 1 tablet PO DAILY 07/03/24 07/03/24 mg-hydrochlorothiazide 12.5 mg tablet metformin 500 mg tablet,extended 500 mg PO DAILY 07/03/24 07/03/24 release 24 hr zolpidem 10 mg tablet (Ambien) 10 mg PO QHS insomnia 07/03/24 07/03/24 Allergies Allergy/AdvReac Type Severity Reaction Status Date / Time No Known Allergies Allergy Unknown Verified 02/28/24 13:36 Review of Systems Review of Systems: All systems reviewed & are unremarkable except as noted in HPI and below Constitutional: Constitutional: Reports no additional constitutional complaints Cardiovascular: Cardiovascular: Reports no additional cardiovascular complaints Respiratory: Respiratory: Reports no additional respiratory complaints [facility] Past Medical History Medical History Arthritis Cervicalgia Chronic cholecystitis with calculus Diabetic foot ulcer associated with type 2 diabetes mellitus, with fat layer exposed Dysfunctional gallbladder Hyperlipidemia Hypersomnolence Hypertension Hyperthyroidism Morbid obesity with BMI of 40.0-44.9, adult Obesity Type 2 diabetes mellitus with hyperglycemia, with long-term current use of insulin Vitamin D deficiency Surgical History Surgical History Fibroid tumor History excision uterine fibroid tumor History of History of partial hysterectomy Hx laparoscopic cholecystectomy 07/01/22 Laparoscopic cholecystectomy with intraoperative cholangiogram Family History Family History Mother Carcinoma of colon with mets to the liver and brain Sibling Asthma Esophageal cancer Bone cancer Breast cancer Epilepsy Malignant neoplasm of prostate Other Hypertension Other Alcoholism Cerebrovascular accident Social History Social History Smoking status: Never smoker Alcohol intake: former Alcohol use details: rare, socially Substance use: never Substance use type: does not use Do You Feel Safe in your Home?: Yes Lack of Transportation: No Lack of Food: Never True Current Housing: I Have Housing Concerned About Future Housing: YES Difficulty Paying Gas/Electric Bills: No Difficulty Paying for Meds: No Currently Unemployed: YES Education: Associate Degree Difficulty w/ Childcare or Family Care: No Living arrangements: with family Additional living arrangements comments: SON Gender identity (if verbalized by the patient): Female Sexual Orientation (if Verbalized by the Patient): Straight or Heterosexual Spiritual care concerns: No Exam Narrative: GENERAL: Well-appearing, well-nourished, and in no acute distress. HEAD: Normocephalic, atraumatic. ENT: Mucous membranes moist. CHEST: Clear to auscultation. No respiratory distress. HEART: Regular rate and rhythm. Normal peripheral pulses. EXTREMITIES: Normal range of motion. Edema left midfoot with cellulitis going from the left 5th digit towards the ankle. The left 5th digit has scaling skin with other areas of moist ulceration. No purulent discharge.. SKIN: Warm, dry, no rash. NEURO: Alert and oriented x3. PSYCH: Normal mood and affect. Course Course Emergency Course: Admit to the hospitalist service for IV antibiotics for osteomyelitis and diabetic foot ulcer. Vital Signs Vital signs: Vital Signs Temperature 97.6 F 07/03/24 12:23 Pulse Rate 100 07/03/24 12:23 Respiratory Rate 18 07/03/24 12:23 Blood Pressure 134/83 07/03/24 12:23 Pulse Oximetry 100 07/03/24 12:23 Temperature 97.1 F L 07/03/24 18:36 Pulse Rate 81 07/03/24 18:36 Respiratory Rate 17 07/03/24 18:36 Blood Pressure 151/92 H 07/03/24 18:36 Pulse Oximetry 99 07/03/24 18:36 MDM - Wound/Laceration Lab Data 07/03/24 14:30 07/03/24 14:30 Labs: Lab Results 07/03/24 Range/Units 14:30 WBC 9.9 (4.5-10.0) K/mm3 RBC 5.22 (4.2-5.4) M/mm3 Hgb 15.0 (12.0-15.0) g/dL Hct 45.9 (37.0-47.0) % MCV 87.9 (80-100) fl MCH 28.7 (26-34) pg MCHC 32.7 (32-36) g/dl RDW 13.6 (11.5-14.5) % Plt Count 340 (150-375) k/mm3 MPV 9.1 (7.4-10.4) fl Immature Gran % (Auto) 0.4 (0-0.5) % Neut % (Auto) 68.2 (45.5-73.1) % Lymph % (Auto) 20.8 (18.3-44.2) % [place] % (Auto) 6.6 (2.6-8.5) % Eos % (Auto) 3.3 (0-4.4) % Baso % (Auto) 0.7 (0.2-1.2) % Lymph # (Auto) 2.06 (0.9-3.2) K/mm3 [place] # (Auto) 0.7 H (0.1-0.6) K/mm3 Eos # (Auto) 0.3 (0-0.3) K/mm3 Baso # (Auto) 0.1 (0.0-0.1) K/mm3 Abs Immat Gran (auto) 0.04 H (0.00-0.031) K/mm3 Absolute Neuts (auto) 6.7 (1.3-6.7) K/mm3 Absolute Nucleated RBC 0.000 (0.0-0.012) K/mm3 Nucleated RBC % 0.0 (0.0-0.2) % ESR 20 (0-20) mm/hr Sodium 142 (137-145) mmol/L Potassium 3.8 (3.4-5.0) mmol/L Chloride 106 (98-107) mmol/L Carbon Dioxide 27 (22-30) mmol/L Anion Gap 9 (4-12) mmol/L BUN 22 H (7-17) mg/dL Creatinine 0.90 (0.7-1.0) mg/dL Estim Creat Clear Calc 86 ml/min Estimated GFR > 60 (59 - ) Glucose 73 (65-110) mg/dL Calcium 10.8 H (8.4-10.2) mg/dL Total Bilirubin 0.4 (0.2-1.3) mg/dL AST 22 (14-36) U/L ALT 22 (6-35) U/L Alkaline Phosphatase 84 (38-126) U/L C-Reactive Protein 4.4 H (<1.0) mg/dL Total Protein 9.0 H (6.3-8.2) g/dL Albumin 4.4 (3.5-5.1) g/dL Imaging Data Radiologist's impression: ITS Impressions Foot X-Ray 07/03/24 14:24 IMPRESSION: Findings concerning for osteomyelitis involving the fifth digit. Recommend MRI of the toes without and with contrast for further evaluation. Discharge Plan Discharge Clinical Impression: Acute osteomyelitis of toe of left foot, Diabetic foot infection Patient Disposition: Still a Patient Condition: Stable
[2024-07-03 15:27] LABS: Erythrocyte Sedimentation Rate 20 mm/hr (0-20)
[2024-07-03] MEDS: CEFEPIME 2 GM/NS 50 ML 2 GM/50 ML BAG IVPB ×2 (15:47→23:23)
[2024-07-03] MEDS: metroNIDAZOLE 500 MG/ISO 100ML 500 MG/100 ML BAG 100 MG IVPB ×2 (15:47→21:07)
--- NOTE | 2024-07-03 15:50 | PM.IMHP ---
H&P: HPI History of Present Illness Date/Time: 07/03/24 17:30 Chief Complaint: Left toe wound. Narrative: This is a pleasant 58-year-old female with insulin-dependent type 2 diabetes mellitus, diabetic peripheral neuropathy, hypertension, and hyperlipidemia who presented to the emergency department via private vehicle for evaluation of a left toe wound. The patient provides the following history. She noticed a small wound pop up about a week ago on her left 5th toe which has gotten increasingly worse over the past 5 days. The area is now red, swollen, and is draining. She does not recall injuring the area. She otherwise feels okay and denies fever, chills, sweats, nausea, and vomiting. In the ED: She was afebrile on arrival with stable vital signs though blood pressures have been running a bit high. Labs are significant for WBC count of 9.9, CRP 4.4, glucose 73, calcium 10.8. Foot x-ray showed findings concerning for osteomyelitis of the 5th digit. She was given cefepime, metronidazole, and vancomycin is being admitted in this setting for further IV antibiotics and surgery consultation. Review of Systems Review of Systems: 12 systems were reviewed and are negative except for as per HPI. FORMERLY [facility] Past Medical History Medical History (Updated 07/03/24 @ 23:27 by Constanza Simmons PA-C) Arthritis Diabetic peripheral neuropathy Hyperlipidemia Hypersomnolence Hypertension Hyperthyroidism Insulin dependent type 2 diabetes mellitus Morbid obesity with BMI of 40.0-44.9, adult Vitamin D deficiency Surgical History Surgical History (Updated 07/03/24 @ 23:24 by Constanza Simmons PA-C) History of History of laparoscopic cholecystectomy (06/2022) History of myomectomy History of total abdominal hysterectomy Family History Family History Mother Carcinoma of colon with mets to the liver and brain Sibling Asthma Esophageal cancer Bone cancer Breast cancer Epilepsy Malignant neoplasm of prostate Other Hypertension Other Alcoholism Cerebrovascular accident Social History Social History (Updated 07/03/24 @ 23:25 by Constanza Simmons PA-C) Social History: Surrogate medical decision maker: Del Gardiner, rachid. Code status: Full code. Smoking status: Never smoker Alcohol intake: former Alcohol use details: rare, socially Substance use: never Substance use type: does not use Do You Feel Safe in your Home?: Yes Lack of Transportation: No Lack of Food: Never True Current Housing: I Have Housing Concerned About Future Housing: YES Difficulty Paying Gas/Electric Bills: No Difficulty Paying for Meds: No Currently Unemployed: YES Education: Associate Degree Difficulty w/ Childcare or Family Care: No Living arrangements: with family Additional living arrangements comments: Lives with son in [place]. Additional occupation/education comments: [employer]. Spiritual care concerns: No Meds Home Medications and Allergies Home Medications Medication Instructions Recorded Confirmed Type empagliflozin 25 mg tablet 25 mg PO DAILY #90 tabs 07/15/23 07/03/24 Rx (Jardiance) insulin lispro 200 unit/mL (3 mL) 20 unit (0.1 mL) subcut TIDWMEAL 07/15/23 07/03/24 Rx subcutaneous pen (Humalog KwikPen #28 mL U-200 Insulin) blood-glucose meter (OneTouch #1 ea 08/03/23 07/03/24 Rx Verio Flex Meter) blood-glucose meter,continuous #1 ea 11/09/23 07/03/24 Rx (Dexcom G7 Private Duty Nurse) blood-glucose sensor (Dexcom G7 #9 ea 11/09/23 07/03/24 Rx Sensor device) pen needle, diabetic 32 gauge x #500 ea 01/10/24 07/03/24 Rx 5/32 (TRUEplus Pen Needle) amitriptyline 50 mg tablet 50 mg PO QHS #90 tabs 02/28/24 07/03/24 Rx pregabalin 75 mg capsule (Lyrica) 75 mg PO BID #60 caps 02/28/24 07/03/24 Rx tirzepatide 7.5 mg/0.5 mL 7.5 mg (0.5 mL) subcut WEEKLY #6 mL 03/20/24 07/03/24 Rx subcutaneous pen injector (Hope) ibuprofen 800 mg tablet 800 mg PO BID PRN pain #60 tabs 04/28/24 07/03/24 Rx blood sugar diagnostic (BiddingForGoodTouch #100 strips 05/29/24 07/03/24 Rx Verio test strips) lancets 30 gauge (OneTouch [place] #200 ea 06/12/24 07/03/24 Rx Plus Lancet) baclofen 10 mg tablet 10 mg PO BID PRN muscle spasticity 06/30/24 07/03/24 Rx #60 tabs glucagon 1 mg/0.2 mL subcutaneous 1 mg subcut PRN PRN Hypoglycemia 07/03/24 07/03/24 History auto-injector (Gvoke HypoPen 2-Pack) insulin degludec 100 unit/mL (3 30 unit subcut HS 07/03/24 07/03/24 History mL) subcutaneous pen (Tresiba FlexTouch U-100 insulin) lisinopril 20 1 tablet PO DAILY 07/03/24 07/03/24 History mg-hydrochlorothiazide 12.5 mg tablet metformin 500 mg tablet,extended 500 mg PO DAILY 07/03/24 07/03/24 History release 24 hr zolpidem 10 mg tablet (Ambien) 10 mg PO QHS insomnia 07/03/24 07/03/24 History Allergies Allergy/AdvReac Type Severity Reaction Status Date / Time No Known Allergies Allergy Unknown Verified 02/28/24 13:36 Vital Signs Vital Signs - 24 hr 07/03/24 12:23 Temperature 97.6 F Pulse Rate 100 Respiratory Rate 18 Blood Pressure 134/83 Pulse Oximetry 100 Exam Narrative: General: Well-developed, nontoxic-appearing female sitting up in bed in no distress. Weight: 131.7 kg. BMI: 42.9. HEENT: PERRL, EOMI. Sclera anicteric. Oral mucosa moist. Oropharynx clear. Neck: Supple. Respiratory: Lungs are clear to auscultation bilaterally. Cardiovascular: Regular rate and rhythm with S1-S2. Gastrointestinal: Abdomen is soft, nontender, and nondistended with positive bowel sounds. Skin: Warm and dry. There is an ulcerated area of the left 5th digit on the dorsum and somewhat into the webspace between the 4th and 5th toes. Purulent drainage is noted. There is surrounding erythema and edema extending onto the dorsum of the foot. Sensation is decreased. Extremities: No cyanosis or clubbing. There is some edema on the dorsum of the left foot. Neurological: Alert. Cranial nerves 2-12 are grossly intact. No gross focal deficits to casual conversation. Psychiatric: Pleasant and cooperative with normal mood and affect. Judgment and insight intact. H&P: Results Labs Labs: Short CBC 07/03/24 Range/Units 14:30 WBC 9.9 (4.5-10.0) K/mm3 Hgb 15.0 (12.0-15.0) g/dL Hct 45.9 (37.0-47.0) % Plt Count 340 (150-375) k/mm3 BMP 07/03/24 14:30 Sodium 142 Potassium 3.8 Chloride 106 Carbon Dioxide 27 BUN 22 H Creatinine 0.90 Glucose 73 Calcium 10.8 H Liver Function 07/03/24 Range/Units 14:30 Total Bilirubin 0.4 (0.2-1.3) mg/dL AST 22 (14-36) U/L ALT 22 (6-35) U/L Alkaline Phosphatase 84 (38-126) U/L Albumin 4.4 (3.5-5.1) g/dL Impressions Foot X-Ray 07/03/24 14:24 IMPRESSION: Findings concerning for osteomyelitis involving the fifth digit. Recommend MRI of the toes without and with contrast for further evaluation. Assessment and Plan Assessment and plan (1) Osteomyelitis of toe of left foot: Code(s): M86.9 - Osteomyelitis, unspecified Status: Acute (2) Cellulitis of foot associated with diabetes mellitus: Code(s): E11.628 - Type 2 diabetes mellitus with other skin complications; L03.119 - Cellulitis of unspecified part of limb Status: Acute (3) Insulin dependent type 2 diabetes mellitus: Code(s): E11.9 - Type 2 diabetes mellitus without complications; Z79.4 - intermediate frame tender (current) use of insulin Status: Acute (4) Hypertension: Qualifiers: Hypertension type: primary hypertension Qualified Code(s): I10 - Essential (primary) hypertension Code(s): I10 - Essential (primary) hypertension Status: Acute Plan The patient presented to the emergency department for evaluation of a left 5th toe wound as detailed in HPI. Labs, imaging, EKG, and all reports were personally reviewed. There is an ulcerated wound with concerns for underlying osteomyelitis of the left 5th toe. She has been started on cefepime, metronidazole, and vancomycin per antibiotic stewardship recommendations. Wound culture has been obtained. Surgery consulted as she will likely need debridement and possible amputation. MRI ordered for a.m.. Continue basal insulin. Initiate sliding scale insulin, Accu-Cheks, and hypoglycemic protocol. Blood pressures were reviewed and they have been reasonable. Her home medications will be reviewed and resumed as appropriate. Findings and treatment plan were discussed with the patient. Questions were solicited and answered to satisfaction. The patient's medical management will be taken over by the hospitalist team in a.m. Quality VTE Prophylaxis VTE prophylaxis: mechanical ordered If No VTE Prophylaxis Answer both mechanical and pharmacologic: Reason no pharmacologic proph: medical contraindication (may need procedure) Hospitalist MIPS Advance Care Plan I have confirmed that the patient's Advanced Care Plan is present, code status is documented, or surrogate decision maker is listed in patient medical record.: Yes Medication Reconciliation I have utilized all available resources to obtain, update and review the patients current medications (includes all prescriptions, OTC, herbals, cannabis, and nutritional supplements).: Yes
[2024-07-03] MEDS: VANCOMYCIN 1,250 MG/NS 250 ML 1,250 MG/250 ML BAG 166.67 MG IVPB ×2 (16:25→18:23)
[2024-07-03 17:52] VITALS: BMI 42.8
--- NOTE | 2024-07-03 17:54 | ADMGEN ---
This patient, Ivania Feldman, was admitted to 2 Medical Room 259-01. Patient/family oriented to hospital policies and general routines including ID bracelet, bed and alarms, visiting hours, pain management, procedures, bathroom and other care routines, personal items, smoking policy, room service/diet, and visiting hours. Information on how to activate the Rapid Response Team has been discussed. Patient/Family are encouraged to report perceived risks to care and to ask questions if they do not understand what they are told or what they should do.
[2024-07-03 18:36] VITALS: BP 151/92; PULSE 81; RESP 17; TEMP 36.2; O2SAT 99
[2024-07-03 20:30] VITALS: PULSE 81; RESP 17; O2SAT 99
[2024-07-03 22:00] VITALS: BP 168/94; PULSE 93; RESP 18; TEMP 37; O2SAT 99
[2024-07-04 00:19] LABS: Glucose Point of Care 201 mg/dl (65-105)
[2024-07-04] MEDS: VANCOMYCIN 1,500 MG/NS 500 ML 1,500 MG/500 ML BAG 250 MG IVPB ×2 (04:30→16:50)
[2024-07-04 06:00] VITALS: BP 127/90; PULSE 95; RESP 16; TEMP 36.5; O2SAT 95
[2024-07-04] MEDS: metroNIDAZOLE 500 MG/ISO 100ML 500 MG/100 ML BAG 100 MG IVPB ×3 (06:35→21:30)
[2024-07-04 08:03] LABS: Anion Gap 4 mmol/L (4-12); Blood Urea Nitrogen 18 mg/dL (7-17); Calcium 9.8 mg/dL (8.4-10.2); Carbon Dioxide 27 mmol/L (22-30); Chloride 109 mmol/L (98-107); Estimated CRCL calculation 87 ml/min; Estimated Glomerular Filt Rate > 60; Glucose 130 mg/dL (65-110); Potassium 4.2 mmol/L (3.4-5.0); Sodium 140 mmol/L (137-145)
[2024-07-04 08:25] LABS: Glucose Point of Care 157 mg/dl (65-105)
[2024-07-04 08:50] LABS: Basophils Percent Auto 0.4 % (0.2-1.2); Eosinophils Absolute Auto 0.3 K/mm3 (0-0.3); Eosinophils Percent Auto 3.5 % (0-4.4); Hemoglobin 13.8 g/dL (12.0-15.0); Immature Granulocyte Absolute 0.03 K/mm3 (0.00-0.031); Immature Granulocyte Percent A 0.3 % (0-0.5); Lymphocytes Absolute Auto 1.78 K/mm3 (0.9-3.2); Lymphocytes Percent Auto 19.5 % (18.3-44.2); Mean Corpuscular HGB Conc 32.9 g/dl (32-36); Mean Corpuscular Hemoglobin 29.1 pg (26-34); Mean Corpuscular Volume 88.6 fl (80-100); Mean Platelet Volume 9.4 fl (7.4-10.4); Monocytes Absolute Auto 0.7 K/mm3 (0.1-0.6); Monocytes Percent Auto 7.8 % (2.6-8.5); Neutrophils Absolute Auto 6.3 K/mm3 (1.3-6.7); Neutrophils Percent Auto 68.5 % (45.5-73.1); Platelet Count Result 328 k/mm3 (150-375); Red Blood Count 4.74 M/mm3 (4.2-5.4); Red Cell Distribution Width 13.6 % (11.5-14.5); White Blood Count 9.1 K/mm3 (4.5-10.0)
[2024-07-04] MEDS: EMPAGLIFLOZIN 25 MG TABLET PO (09:16)
[2024-07-04] MEDS: hydroCHLOROthiazide 12.5 MG CAPSULE PO (09:16)
[2024-07-04] MEDS: PREGABALIN (*CRX) 75 MG CAPSULE PO ×2 (09:16→16:53)
[2024-07-04] MEDS: lisinopriL 20 MG TABLET PO (09:16)
--- NOTE | 2024-07-04 10:25 | P.CONGS_ITS ---
Assessment and Plan Assessment and plan (1) Osteomyelitis of fifth toe of left foot: Code(s): M86.9 - Osteomyelitis, unspecified Status: Acute Assessment and Plan: Left diabetic foot infection with an ulcer on the left 5th toe that probes to bone with purulent drainage. X-rays of the foot suggest possible osteomyelitis of the 5th toe. MRI of left foot ordered for today. Discussed with the patient she likely has osteomyelitis of the left 5th toe. We discussed treatment options in detail of both nonoperative management with 6 weeks of IV antibiotics versus surgical management with amputation of the left 5th toe. We discussed risks and benefits of all options. The patient would like to speak with her family regarding options and will let us know her decision later today. Will allow her to have a diabetic diet and continue IV antibiotics for now. Wound culture was ordered. Will await MRI results. Continue gauze dressing changes for now. (2) Diabetic foot infection: Code(s): E11.628 - Type 2 diabetes mellitus with other skin complications; L08.9 - Local infection of the skin and subcutaneous tissue, unspecified Status: Acute Assessment and Plan: Continue IV antibiotics, elevate left lower extremity (3) Insulin dependent type 2 diabetes mellitus: Code(s): E11.9 - Type 2 diabetes mellitus without complications; Z79.4 - group home (current) use of insulin Status: Acute Assessment and Plan: Management per Hospitalist. Hgb A1C pending. Patient reports compliance with history of good control of her diabetes. (4) Morbid obesity with BMI of 40.0-44.9, adult: Code(s): E66.01 - Morbid (severe) obesity due to excess calories; Z68.41 - Body mass index [BMI] 40.0-44.9, adult Status: Acute (5) Hypertension: Qualifiers: Hypertension type: primary hypertension Qualified Code(s): I10 - Essential (primary) hypertension Code(s): I10 - Essential (primary) hypertension Status: Acute (6) Diabetic peripheral neuropathy: Code(s): E11.42 - Type 2 diabetes mellitus with diabetic polyneuropathy Status: Chronic Plan I have discussed the patient's case and plan of care with Dr. Machado. Thank you for allowing us to see the patient in consultation and we will continue to follow along with you. History of Present Illness Consult details Consult date: 07/04/24 Reason for consult: other (Diabetic foot infection with osteomyelitis) Requesting physician: Art Holt MD Narrative: This is a 58-year-old woman with type 2 diabetes mellitus on insulin and peripheral neuropathy, who we have been asked to see in surgical consultation for a diabetic foot infection with osteomyelitis. She reports over the past month having a small scab on the left lateral toe. She would keep it covered with a Band-Aid while at work. 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 Four days ago, when she took the bandage off after work the scab and skin around it peeled off with a Band-Aid and reportedly appeared moist. Over the next 24 hours, her toe became swollen and red. Yesterday, her toe appeared more swollen and the skin had dark discoloration. Her family member who was a nurse recommended she go to the ER for evaluation. Labs in the ED showed a normal white blood cell count and glucose 201. Hemoglobin A1c pending. She was found to have a left fifth toe ulcer in the ED. left foot x-ray showed findings concerning for osteomyelitis involving the fifth digit. Recommending MRI of the toes. She was admitted and started on broad-spectrum IV antibiotics. Wound culture has been ordered. She denies any previous foot infections or previous surgeries on her feet. Review of Systems 2 Review of Systems: All systems reviewed & are unremarkable except as noted in HPI and below PMFSH Past Medical History Medical History (Updated 07/04/24 @ 10:39 by NAZIA Noonan) Diabetic peripheral neuropathy Insulin dependent type 2 diabetes mellitus Morbid obesity with BMI of 40.0-44.9, adult Hypersomnolence Hyperthyroidism Hyperlipidemia Vitamin D deficiency Hypertension Arthritis Surgical History Surgical History History of total abdominal hysterectomy History of myomectomy History of laparoscopic cholecystectomy (06/2022) History of Family History Family History Mother Carcinoma of colon with mets to the liver and brain Sibling Asthma Esophageal cancer Bone cancer Breast cancer Epilepsy Malignant neoplasm of prostate Other Hypertension Other Alcoholism Cerebrovascular accident Social History Social History Social History: Surrogate medical decision maker: Del Gardiner, rachid. Code status: Full code. Smoking status: Never smoker Alcohol intake: former Alcohol use details: rare, socially Substance use: never Substance use type: does not use Do You Feel Safe in your Home?: Yes Lack of Transportation: No Lack of Food: Never True Current Housing: I Have Housing Concerned About Future Housing: YES Difficulty Paying Gas/Electric Bills: No Difficulty Paying for Meds: No Currently Unemployed: YES Education: Associate Degree Difficulty w/ Childcare or Family Care: No Living arrangements: with family Additional living arrangements comments: Lives with son in [place]. Additional occupation/education comments: [employer]. Spiritual care concerns: No Meds Home Medications and Allergies Home Medications ?Medication ?Instructions ?Recorded ?Confirmed ?Type empagliflozin 25 mg tablet 25 mg PO DAILY #90 tabs 07/15/23 07/03/24 Rx (Jardiance) insulin lispro 200 unit/mL (3 mL) 20 unit (0.1 mL) subcut TIDWMEAL 07/15/23 07/03/24 Rx subcutaneous pen (Humalog KwikPen #28 mL U-200 Insulin) blood-glucose meter (OneTouch #1 ea 08/03/23 07/03/24 Rx Verio Flex Meter) blood-glucose meter,continuous #1 ea 11/09/23 07/03/24 Rx (Dexcom G7 Real Estate Analyst) blood-glucose sensor (Dexcom G7 #9 ea 11/09/23 07/03/24 Rx Sensor device) pen needle, diabetic 32 gauge x #500 ea 01/10/24 07/03/24 Rx /32 (TRUEplus Pen Needle) amitriptyline 50 mg tablet 50 mg PO QHS #90 tabs 02/28/24 07/03/24 Rx pregabalin 75 mg capsule (Lyrica) 75 mg PO BID #60 caps 02/28/24 07/03/24 Rx tirzepatide 7.5 mg/0.5 mL 7.5 mg (0.5 mL) subcut WEEKLY #6 mL 03/20/24 07/03/24 Rx subcutaneous pen injector (Hope) ibuprofen 800 mg tablet 800 mg PO BID PRN pain #60 tabs 04/28/24 07/03/24 Rx blood sugar diagnostic (OneTouch #100 strips 05/29/24 07/03/24 Rx Verio test strips) lancets 30 gauge (OneTouch Delica #200 ea 06/12/24 07/03/24 Rx Plus Lancet) baclofen 10 mg tablet 10 mg PO BID PRN muscle spasticity 06/30/24 07/03/24 Rx #60 tabs glucagon 1 mg/0.2 mL subcutaneous 1 mg subcut PRN PRN Hypoglycemia 07/03/24 07/03/24 History auto-injector (Gvoke HypoPen 2-Pack) insulin degludec 100 unit/mL (3 30 unit subcut HS 07/03/24 07/03/24 History mL) subcutaneous pen (Tresiba FlexTouch U-100 insulin) lisinopril 20 1 tablet PO DAILY 07/03/24 07/03/24 History mg-hydrochlorothiazide 12.5 mg tablet metformin 500 mg tablet,extended 500 mg PO DAILY 07/03/24 07/03/24 History release 24 hr zolpidem 10 mg tablet (Ambien) 10 mg PO QHS insomnia 07/03/24 07/03/24 History Allergies Allergy/AdvReac Type Severity Reaction Status Date / Time No Known Allergies Allergy Unknown Verified 02/28/24 13:36 Vital Signs Vital Signs - 24 hr 07/03/24 12:23 07/03/24 18:36 07/03/24 20:30 Temperature 97.6 F 97.1 F L Pulse Rate 100 81 81 Respiratory Rate 18 17 17 Blood Pressure 134/83 151/92 H Pulse Oximetry 100 99 99 Oxygen Delivery Room Air 07/03/24 22:00 07/04/24 06:00 Temperature 98.6 F 97.7 F Pulse Rate 93 95 Respiratory Rate 18 16 Blood Pressure 168/94 H 127/90 Pulse Oximetry 99 95 Oxygen Delivery Exam 2 Const: General: comfortable and no acute distress Nutritional Appearance: o verweight Orientation/consciousness: patient oriented x3 HENMT: Head: normocephalic and atraumatic Ears: hearing grossly normal bilaterally Mouth: Yes moist mucous membranes Eyes: General: appearance normal, both eyes and all related structures P upils: Equal, round and reactive pupils present Neck: Neck: normal visual inspection and full ROM Resp: Effort & Inspection: no respiratory distress Auscultation: clear to auscultation bilaterally Cardio: Rate: regular rate Rhythm: regular rhythm Heart sounds: S1 normal heart sound present and S2 normal heart sound present Peripheral pulses: Peripheral pulses 2+ throughout GI: Inspection: non-distended GI Palp: Yes Soft to palpation, No Tenderness to palpation present (GI), No Guarding due to palpation present (GI), Yes No hepatosplenomegaly present and No Rebound tenderness present Percussion: Yes normal to percussion Auscultation: normal bowel sounds Skin: General skin exam: normal color Neuro: General: moves all extremities and no focal motor deficits Speech: n ormal speech Motor exam (neuro): 5/5 motor strength present throughout Extrem: Right upper extremity: normal to inspection Left upper extremity: n ormal to inspection Right lower extremity: normal to inspection and foot Details: normal capillary refill, normal to inspection and vascular exam Details: dorsalis pedis pulse present and posterior tibial pulse present Left lower extremity: foot Details: normal capillary refill, toes with normal ROM, warmth, edema and vascular exam Details: dorsalis pedis pulse present and posterior tibial pulse present; no tenderness Other: Left 5th toe with a 1 x 1 cm ulcer on the lateral toe with purulent drainage and a foul odor that probes 1.5 cm to the bone and even extends anteriorly over the phalange to nearly the medial side of the toe. The entire 5th toe is swollen and erythematous with dry skin around the toenail that is flaky, and there is erythema and mild edema extending on the dorsal foot to the base of the ankle. Psych: Mental Status: mental status grossly normal Attitude: cooperative Insight: Good insight present (Psych) Judgement: Good judgement present (Psych) Results Labs 07/04/24 08:38 07/04/24 05:17 Labs: Abnormal lab results 07/03/24 07/04/24 07/04/24 Range/Units 14:30 00:16 05:17 Bee # (Auto) 0.7 H (0.1-0.6) K/mm3 Abs Immat Gran (auto) 0.04 H (0.00-0.031) K/mm3 Chloride 109 H (98-107) mmol/L BUN 22 H 18 H (7-17) mg/dL Glucose 130 H (65-110) mg/dL POC Capillary Glucose 201 H (65-105) mg/dl Calcium 10.8 H (8.4-10.2) mg/dL C-Reactive Protein 4.4 H (<1.0) mg/dL Total Protein 9.0 H (6.3-8.2) g/dL 07/04/24 07/04/24 Range/Units 08:20 08:38 Bee # (Auto) 0.7 H (0.1-0.6) K/mm3 Abs Immat Gran (auto) (0.00-0.031) K/mm3 Chloride (98-107) mmol/L BUN (7-17) mg/dL Glucose (65-110) mg/dL POC Capillary Glucose 157 H (65-105) mg/dl Calcium (8.4-10.2) mg/dL C-Reactive Protein (<1.0) mg/dL Total Protein (6.3-8.2) g/dL Diabetes panel 07/03/24 07/04/24 Range/Units 14:30 05:17 Sodium 142 140 (137-145) mmol/L Potassium 3.8 4.2 (3.4-5.0) mmol/L Chloride 106 109 H (98-107) mmol/L Carbon Dioxide 27 27 (22-30) mmol/L BUN 22 H 18 H (7-17) mg/dL Creatinine 0.90 0.90 (0.7-1.0) mg/dL Glucose 73 130 H (65-110) mg/dL Calcium 10.8 H 9.8 (8.4-10.2) mg/dL AST 22 (14-36) U/L ALT 22 (6-35) U/L Alkaline Phosphatase 84 (38-126) U/L Total Protein 9.0 H (6.3-8.2) g/dL Albumin 4.4 (3.5-5.1) g/dL Calcium panel 07/03/24 07/04/24 Range/Units 14:30 05:17 Calcium 10.8 H 9.8 (8.4-10.2) mg/dL Albumin 4.4 (3.5-5.1) g/dL Pituitary panel 07/03/24 07/04/24 Range/Units 14:30 05:17 Sodium 142 140 (137-145) mmol/L Potassium 3.8 4.2 (3.4-5.0) mmol/L Chloride 106 109 H (98-107) mmol/L Carbon Dioxide 27 27 (22-30) mmol/L BUN 22 H 18 H (7-17) mg/dL Creatinine 0.90 0.90 (0.7-1.0) mg/dL Glucose 73 130 H (65-110) mg/dL Calcium 10.8 H 9.8 (8.4-10.2) mg/dL Adrenal panel 07/03/24 07/04/24 Range/Units 14:30 05:17 Sodium 142 140 (137-145) mmol/L Potassium 3.8 4.2 (3.4-5.0) mmol/L Chloride 106 109 H (98-107) mmol/L Carbon Dioxide 27 27 (22-30) mmol/L BUN 22 H 18 H (7-17) mg/dL Creatinine 0.90 0.90 (0.7-1.0) mg/dL Glucose 73 130 H (65-110) mg/dL Calcium 10.8 H 9.8 (8.4-10.2) mg/dL Total Bilirubin 0.4 (0.2-1.3) mg/dL AST 22 (14-36) U/L ALT 22 (6-35) U/L Alkaline Phosphatase 84 (38-126) U/L Total Protein 9.0 H (6.3-8.2) g/dL Albumin 4.4 (3.5-5.1) g/dL All other labs normal. Imaging Additional studies: ITS Impressions Foot X-Ray 07/03/24 14:24 IMPRESSION: Findings concerning for osteomyelitis involving the fifth digit. Recommend MRI of the toes without and with contrast for further evaluation.
[2024-07-04] MEDS: CEFEPIME 2 GM/NS 50 ML 2 GM/50 ML BAG IVPB ×2 (11:08→23:06)
[2024-07-04 12:03] LABS: Hemoglobin A1C 6.5 % (<5.7)
--- NOTE | 2024-07-04 12:35 | PM.IMPN ---
Progress Note: A&P Assessment and Plan (1) Osteomyelitis of toe of left foot: Code(s): M86.9 - Osteomyelitis, unspecified Status: Acute Assessment and Plan: Continue abx of Cefepime, Flagyl and Vancomycin. Surgery was consulted, plan is for Amputation. Pain control as needed. Dressing to draining wound on toe. (2) Cellulitis of foot associated with diabetes mellitus: Code(s): E11.628 - Type 2 diabetes mellitus with other skin complications; L03.119 - Cellulitis of unspecified part of limb Status: Acute Assessment and Plan: See plan for #1 (3) Insulin dependent type 2 diabetes mellitus: Code(s): E11.9 - Type 2 diabetes mellitus without complications; Z79.4 - group home (current) use of insulin Status: Acute Assessment and Plan: Lantus 30 units HS SSI moderate dose Hypoglycemic protocol Diabetic diet today, NPO after MN for OR tomorrow. Continue jardiance Glucose checks AC and HS (4) Hypertension: Qualifiers: Hypertension type: primary hypertension Qualified Code(s): I10 - Essential (primary) hypertension Code(s): I10 - Essential (primary) hypertension Status: Acute Assessment and Plan: Continue home medications Trend VS and adjust as needed Time Spent With Patient Time with patient: 15 - 25 minutes Subjective Date/time seen: 07/04/24 12:35 Interval history: This very pleasant female was examined at the bedside today in interval assessment since being admitted to the hospital for Left fifth toe Osteomyelitis. She is on abx, and has been evaluated by surgery and has decided to proceed with amputation of the toe. Her pain is intact and she has no other acute complaints at this time. Review of Systems Review of Systems: All systems reviewed & are unremarkable except as noted in HPI and below Exam Narrative: General: Well-developed, nontoxic-appearing female sitting up in bed in no distress. HEENT: PERRL, EOMI. Sclera anicteric. Oral mucosa moist. Oropharynx clear. Neck: Supple. Respiratory: Lungs are clear to auscultation bilaterally. Cardiovascular: Regular rate and rhythm with S1-S2. Gastrointestinal: Abdomen is soft, nontender, and nondistended with positive bowel sounds. Skin: Warm and dry. There is an ulcerated area of the left 5th digit on the dorsum and somewhat into the webspace between the 4th and 5th toes. Purulent drainage is noted. There is surrounding erythema and edema extending onto the dorsum of the foot. Sensation is decreased. Extremities: No cyanosis or clubbing. There is some edema on the dorsum of the left foot. Neurological: Alert. Cranial nerves 2-12 are grossly intact. No gross focal deficits to casual conversation. Psychiatric: Pleasant and cooperative with normal mood and affect. Judgment and insight intact. Objective Data Vital Signs Vital Signs: Vital Signs - 24 hr 07/03/24 18:36 07/03/24 20:30 07/03/24 22:00 Temperature 97.1 F L 98.6 F Pulse Rate 81 81 93 Respiratory Rate 17 17 18 Blood Pressure 151/92 H 168/94 H Pulse Oximetry 99 99 99 Oxygen Delivery Room Air 07/04/24 06:00 07/04/24 09:16 Temperature 97.7 F Pulse Rate 95 Respiratory Rate 16 Blood Pressure 127/90 Pulse Oximetry 95 Oxygen Delivery Room Air Intake/Output Intake/Output: Intake & Output 07/01/24 07/02/24 07/03/24 07/04/24 23:59 23:59 23:59 23:59 Intake Total 300 940 Balance 300 940 Meds/Results Medications: Active Medications Generic Name Dose Route Start Last Admin Trade Name Freq PRN Reason Stop Dose Admin Acetaminophen 650 mg 07/03/24 15:03 Acetaminophen 325 Mg Tablet PO Q4H PRN Mild Pain (1-3) or Fever Hydrocodone Bitart/Acetaminophen 1 tab 07/03/24 15:03 Hydrocodone/Acetaminophen (*Crx) 5-325 Mg Tablet PO Q4H PRN Pain Rated 4-6 Amitriptyline HCl 50 mg 07/04/24 21:00 Amitriptyline Hcl 25 Mg Tablet PO QHS CHUCK Baclofen 10 mg 07/03/24 23:29 Baclofen 10 Mg Tablet PO BID PRN muscle spasticity Dextrose 12.5 gm 07/03/24 23:20 Dextrose 50% 25 Gm/50 Ml Syringe IV PUSH PRN PRN Hypoglycemia Protocol Empagliflozin 25 mg 07/04/24 09:00 07/04/24 09:16 Empagliflozin 25 Mg Tablet PO 25 mg DAILY CHUCK Administration Glucagon 1 mg 07/03/24 23:20 Glucagon For Inj 1 Mg Vial IM PRN PRN Hypoglycemia Protocol Glucose 15 gm 07/03/24 23:20 Glucose Oral Gel 15 Gm Of Glucse In 37.5 Gm Tube PO PRN PRN Hypoglycemia Protocol Hydrochlorothiazide 12.5 mg 07/04/24 09:00 07/04/24 09:16 Hydrochlorothiazide 12.5 Mg Capsule PO 12.5 mg QAM CHUCK Administration Cefepime HCl 2 gm in 50 mls @ 100 mls/hr 07/04/24 00:00 07/04/24 11:08 Maxipime 2 Gm/Ns 50 Ml IVPB 100 mls/hr Q12H CHUCK Administration Metronidazole 500 mg in 100 mls @ 100 mls/hr 07/03/24 22:00 07/04/24 06:35 Flagyl 500 Mg/Iso Soln 100 Ml IVPB 100 mls/hr Q8H CHUCK Administration Vancomycin HCl 1,500 mg in 500 mls @ 250 mls/hr 07/04/24 05:00 07/04/24 04:30 Vancomycin 1,500 Mg/Ns 500 Ml IVPB 250 mls/hr Q12H CHUCK Administration Dextrose 1,000 mls @ 100 mls/hr 07/03/24 23:20 Dextrose 5% 1,000 Ml IVPB PRN PRN Hypoglycemia Protocol Insulin Aspart 3 - 6 units 07/04/24 08:00 07/04/24 09:13 Insulin Aspart (*Bkc) 100 Units/Ml SUB-Q Not Given TIDWM [facility] Protocol Insulin Aspart 1 - 3 units 07/04/24 21:00 Insulin Aspart (*Bkc) 100 Units/Ml SUB-Q HS [facility] Protocol Insulin Glargine 30 units 07/04/24 21:00 Insulin Glargine (*Bkc) 100 Units/Ml SUB-Q [facility] Lisinopril 20 mg 07/04/24 09:00 07/04/24 09:16 Lisinopril 20 Mg Tablet PO 20 mg QAM [facility] Administration Ondansetron HCl 4 mg 07/03/24 15:03 Ondansetron Inj 4 Mg/2 Ml Vial IV PUSH Q4H PRN Nausea Pregabalin 75 mg 07/04/24 09:00 07/04/24 09:16 Pregabalin (*Crx) 75 Mg Capsule PO 75 mg BID CHUCK Administration Zolpidem Tartrate 10 mg 07/04/24 21:00 Zolpidem Tartrate (*Crx) 5 Mg Tablet PO QHS [facility] Radiology Results: ITS Impressions Foot X-Ray 07/03/24 14:24 IMPRESSION: Findings concerning for osteomyelitis involving the fifth digit. Recommend MRI of the toes without and with contrast for further evaluation. Labs Labs: Laboratory Results - last 24 hr 07/03/24 07/04/24 07/04/24 14:30 00:16 05:17 WBC 9.9 RBC 5.22 Hgb 15.0 Hct 45.9 MCV 87.9 MCH 28.7 MCHC 32.7 RDW 13.6 Plt Count 340 MPV 9.1 Immature Gran % (Auto) 0.4 Neut % (Auto) 68.2 Lymph % (Auto) 20.8 Glades % (Auto) 6.6 Eos % (Auto) 3.3 Baso % (Auto) 0.7 Lymph # (Auto) 2.06 [place] # (Auto) 0.7 H Eos # (Auto) 0.3 Baso # (Auto) 0.1 Abs Immat Gran (auto) 0.04 H Absolute Neuts (auto) 6.7 Absolute Nucleated RBC 0.000 Nucleated RBC % 0.0 ESR 20 Sodium 142 140 Potassium 3.8 4.2 Chloride 106 109 H Carbon Dioxide 27 27 Anion Gap 9 4 BUN 22 H 18 H Creatinine 0.90 0.90 Estim Creat Clear Calc 86 87 Estimated GFR > 60 > 60 Glucose 73 130 H POC Capillary Glucose 201 H Hemoglobin A1c 6.5 H Calcium 10.8 H 9.8 Magnesium 2.0 Total Bilirubin 0.4 AST 22 ALT 22 Alkaline Phosphatase 84 C-Reactive Protein 4.4 H Total Protein 9.0 H Albumin 4.4 07/04/24 07/04/24 08:20 08:38 WBC 9.1 RBC 4.74 Hgb 13.8 Hct 42.0 MCV 88.6 MCH 29.1 MCHC 32.9 RDW 13.6 Plt Count 328 MPV 9.4 Immature Gran % (Auto) 0.3 Neut % (Auto) 68.5 Lymph % (Auto) 19.5 Glades % (Auto) 7.8 Eos % (Auto) 3.5 Baso % (Auto) 0.4 Lymph # (Auto) 1.78 [place]ades # (Auto) 0.7 H Eos # (Auto) 0.3 Baso # (Auto) 0.0 Abs Immat Gran (auto) 0.03 Absolute Neuts (auto) 6.3 Absolute Nucleated RBC 0.000 Nucleated RBC % 0.0 ESR Sodium Potassium Chloride Carbon Dioxide Anion Gap BUN Creatinine Estim Creat Clear Calc Estimated GFR Glucose POC Capillary Glucose 157 H Hemoglobin A1c Calcium Magnesium Total Bilirubin AST ALT Alkaline Phosphatase C-Reactive Protein Total Protein Albumin Quality VTE Prophylaxis VTE prophylaxis: mechanical ordered
[2024-07-04 12:48] LABS: Glucose Point of Care 134 mg/dl (65-105)
[2024-07-04 14:00] VITALS: BP 132/82; PULSE 96; RESP 17; TEMP 36.6; O2SAT 96
[2024-07-04 17:23] LABS: Glucose Point of Care 157 mg/dl (65-105)
[2024-07-04 19:58] VITALS: BP 141/91; PULSE 91; RESP 17; TEMP 36.8; O2SAT 97
[2024-07-04 20:00] LABS: Glucose Point of Care 163 mg/dl (65-105)
[2024-07-04 20:35] VITALS: PULSE 91; RESP 17; O2SAT 97
[2024-07-04] MEDS: AMITRIPTYLINE HCL 25 MG TABLET 50 MG PO (20:36)
[2024-07-04] MEDS: INSULIN GLARGINE (*BKC) 100 UNITS/ML 30 UNITS SUB-Q (20:36)
[2024-07-04] MEDS: ZOLPIDEM TARTRATE (*CRX) 5 MG TABLET 10 MG PO (20:36)
[2024-07-05] VITALS (9 sets, daily range): BP systolic 126–152; BP diastolic 66–90; PULSE 79–95; RESP 16–18; TEMP 36.2–36.7; O2SAT 98–100
[2024-07-05 04:10] LABS: Hematocrit 39.5 % (37.0-47.0); Hemoglobin 13.4 g/dL (12.0-15.0); Mean Corpuscular HGB Conc 33.9 g/dl (32-36); Mean Corpuscular Hemoglobin 29.6 pg (26-34); Mean Corpuscular Volume 87.2 fl (80-100); Mean Platelet Volume 8.9 fl (7.4-10.4); Platelet Count Result 315 k/mm3 (150-375); Red Blood Count 4.53 M/mm3 (4.2-5.4); Red Cell Distribution Width 13.7 % (11.5-14.5); White Blood Count 10.1 K/mm3 (4.5-10.0)
[2024-07-05 04:21] LABS: INR 1.2; Prothrombin Time 15.2 Seconds (11.1-14.7)
[2024-07-05 04:27] LABS: Anion Gap 4 mmol/L (4-12); Blood Urea Nitrogen 17 mg/dL (7-17); Calcium 10.3 mg/dL (8.4-10.2); Carbon Dioxide 28 mmol/L (22-30); Chloride 107 mmol/L (98-107); Estimated CRCL calculation 97 ml/min; Estimated Glomerular Filt Rate > 60; Glucose 128 mg/dL (65-110); Potassium 3.9 mmol/L (3.4-5.0); Sodium 139 mmol/L (137-145)
[2024-07-05] MEDS: metroNIDAZOLE 500 MG/ISO 100ML 500 MG/100 ML BAG 100 MG IVPB ×3 (05:19→21:35)
[2024-07-05 06:07] LABS: Vancomycin Trough 12.5 ug/mL (10.0-20.0)
[2024-07-05] MEDS: VANCOMYCIN 2,000 MG/NS 500 ML 2,000 MG/500 ML BAG 250 MG IVPB (06:26)
[2024-07-05 08:18] LABS: Glucose Point of Care 130 mg/dl (65-105)
--- NOTE | 2024-07-05 08:43 | P.PNIM_ITS ---
Progress Note: A&P Assessment and Plan (1) Osteomyelitis of toe of left foot: Code(s): M86.9 - Osteomyelitis, unspecified Status: Acute Assessment and Plan: * Continue abx of Cefepime, Flagyl and Vancomycin. * Surgery was consulted, plan is for Amputation. * Pain control as needed. * Dressing to draining wound on toe. 07/05/24: * Continue IV abx pending OR today. * Pt has been NPO since MN * PRN pain meds. (2) Cellulitis of foot associated with diabetes mellitus: Code(s): E11.628 - Type 2 diabetes mellitus with other skin complications; L03.119 - Cellulitis of unspecified part of limb Status: Acute Assessment and Plan: * See plan for #1 (3) Insulin dependent type 2 diabetes mellitus: Code(s): E11.9 - Type 2 diabetes mellitus without complications; Z79.4 - assistant terminal manager (current) use of insulin Status: Acute Assessment and Plan: * Lantus 30 units HS * SSI moderate dose * Hypoglycemic protocol * Diabetic diet today, NPO after MN for OR tomorrow. * Continue jardiance * Glucose checks AC and HS 07/05/24: * Continue SSI plan for tighter glucose control and to optimize healing post amputation today. * Fasting Glucose 128 today. Will hold on any changes as pt is currently NPO * Normal saline at 100 ml/hr started for hydration as pt is NPO. (4) Hypertension: Qualifiers: Hypertension type: primary hypertension Qualified Code(s): I10 - Essential (primary) hypertension Code(s): I10 - Essential (primary) hypertension Status: Acute Assessment and Plan: * Continue home medications * Trend VS and adjust as needed 07/05/24: * BP this AM is 126/66, well controlled. * Continue current regimen. Plan OR today with Dr. Machado. Time Spent With Patient Time with patient: 25 - 35 minutes Subjective Date/time seen: 07/05/24 08:43 Interval history: This very pleasant 58 year old female pt was examined at the bedside today in interval assessment. She is awaiting the OR today for amputation of the left fifth toe due to Osteomyelitis. Her pain is controlled, she reports sleeping well last night and no other acute complaints. Review of Systems Review of Systems: All systems reviewed & are unremarkable except as noted in HPI and below Exam Narrative: General: Well-developed, nontoxic-appearing female sitting up in bed in no distress. HEENT: PERRL, EOMI. Sclera anicteric. Oral mucosa moist. Oropharynx clear. Neck: Supple. Respiratory: Lungs are clear to auscultation bilaterally. Cardiovascular: Regular rate and rhythm with S1-S2. Gastrointestinal: Abdomen is soft, nontender, and nondistended with positive bowel sounds. Skin: Warm and dry. There is an ulcerated area of the left 5th digit on the dorsum and somewhat into the webspace between the 4th and 5th toes. Purulent drainage is noted. There is surrounding erythema and edema extending onto the dorsum of the foot. Sensation is decreased. Extremities: No cyanosis or clubbing. There is some edema on the dorsum of the left foot. Neurological: Alert. Cranial nerves 2-12 are grossly intact. No gross focal deficits to casual conversation. Psychiatric: Pleasant and cooperative with normal mood and affect. Judgment and insight intact. Objective Data Vital Signs Vital Signs: Vital Signs - 24 hr 07/04/24 09:16 07/04/24 14:00 07/04/24 19:58 Temperature 97.8 F 98.2 F Pulse Rate 96 91 Respiratory Rate 17 17 Blood Pressure 132/82 141/91 H Pulse Oximetry 96 97 Oxygen Delivery Room Air 07/04/24 20:35 07/05/24 05:15 Temperature 98.1 F Pulse Rate 91 92 Respiratory Rate 17 16 Blood Pressure 126/66 Pulse Oximetry 97 98 Oxygen Delivery Room Air Intake/Output Intake/Output: Intake & Output 07/02/24 07/03/24 07/04/24 07/05/24 23:59 23:59 23:59 23:59 Intake Total 300 2510 Balance 300 2510 Meds/Results Medications: Active Medications Generic Name Dose Route Start Last Admin Trade Name Freq PRN Reason Stop Dose Admin Acetaminophen 650 mg 07/03/24 15:03 Acetaminophen 325 Mg Tablet PO Q4H PRN Mild Pain (1-3) or Fever Hydrocodone Bitart/Acetaminophen 1 tab 07/03/24 15:03 Hydrocodone/Acetaminophen (*Crx) 5-325 Mg Tablet PO Q4H PRN Pain Rated 4-6 Amitriptyline HCl 50 mg 07/04/24 21:00 07/04/24 20:36 Amitriptyline Hcl 25 Mg Tablet PO 50 mg QHS CHUCK Administration Baclofen 10 mg 07/03/24 23:29 Baclofen 10 Mg Tablet PO BID PRN muscle spasticity Dextrose 12.5 gm 07/03/24 23:20 Dextrose 50% 25 Gm/50 Ml Syringe IV PUSH PRN PRN Hypoglycemia Protocol Empagliflozin 25 mg 07/04/24 09:00 07/04/24 09:16 Empagliflozin 25 Mg Tablet PO 25 mg DAILY CHUCK Administration Glucagon 1 mg 07/03/24 23:20 Glucagon For Inj 1 Mg Vial IM PRN PRN Hypoglycemia Protocol Glucose 15 gm 07/03/24 23:20 Glucose Oral Gel 15 Gm Of Glucse In 37.5 Gm Tube PO PRN PRN Hypoglycemia Protocol Hydrochlorothiazide 12.5 mg 07/04/24 09:00 07/04/24 09:16 Hydrochlorothiazide 12.5 Mg Capsule PO 12.5 mg QAM CHUCK Administration Cefepime HCl 2 gm in 50 mls @ 100 mls/hr 07/04/24 00:00 07/04/24 23:06 Maxipime 2 Gm/Ns 50 Ml IVPB 100 mls/hr Q12H CHUCK Administration Metronidazole 500 mg in 100 mls @ 100 mls/hr 07/03/24 22:00 07/05/24 05:19 Flagyl 500 Mg/Iso Soln 100 Ml IVPB 100 mls/hr Q8H CHUCK Administration Dextrose 1,000 mls @ 100 mls/hr 07/03/24 23:20 Dextrose 5% 1,000 Ml IVPB PRN PRN Hypoglycemia Protocol Vancomycin HCl 2,000 mg in 500 mls @ 250 mls/hr 07/05/24 06:00 07/05/24 06:26 Vancomycin 2,000 Mg/Ns 500 Ml IVPB 250 mls/hr Q12H CHUCK Administration Insulin Aspart 3 - 6 units 07/04/24 08:00 07/04/24 17:39 Insulin Aspart (*Bkc) 100 Units/Ml SUB-Q Not Given TIDWM CHUCK Protocol Insulin Aspart 1 - 3 units 07/04/24 21:00 07/04/24 20:33 Insulin Aspart (*Bkc) 100 Units/Ml SUB-Q Not Given HS CHUCK Protocol Insulin Glargine 30 units 07/04/24 21:00 07/04/24 20:36 Insulin Glargine (*Bkc) 100 Units/Ml SUB-Q 30 units HS CHUCK Administration Lisinopril 20 mg 07/04/24 09:00 07/04/24 09:16 Lisinopril 20 Mg Tablet PO 20 mg QAM CHUCK Administration Ondansetron HCl 4 mg 07/03/24 15:03 Ondansetron Inj 4 Mg/2 Ml Vial IV PUSH Q4H PRN Nausea Pregabalin 75 mg 07/04/24 09:00 07/04/24 16:53 Pregabalin (*Crx) 75 Mg Capsule PO 75 mg BID CHUCK Administration Zolpidem Tartrate 10 mg 07/04/24 21:00 07/04/24 20:36 Zolpidem Tartrate (*Crx) 5 Mg Tablet PO 10 mg QHS CHUCK Administration Radiology Results: ITS Impressions Foot X-Ray 07/03/24 14:24 IMPRESSION: Findings concerning for osteomyelitis involving the fifth digit. Recommend MRI of the toes without and with contrast for further evaluation. Foot MRI 07/04/24 13:22 IMPRESSION: 1. Osteomyelitis involving the fifth proximal to distal phalanges. Labs Labs: Laboratory Results - last 24 hr 07/04/24 07/04/24 07/04/24 05:17 08:38 12:45 WBC 9.1 RBC 4.74 Hgb 13.8 Hct 42.0 MCV 88.6 MCH 29.1 MCHC 32.9 RDW 13.6 Plt Count 328 MPV 9.4 Immature Gran % (Auto) 0.3 Neut % (Auto) 68.5 Lymph % (Auto) 19.5 [place] % (Auto) 7.8 Eos % (Auto) 3.5 Baso % (Auto) 0.4 Lymph # (Auto) 1.78 [place] # (Auto) 0.7 H Eos # (Auto) 0.3 Baso # (Auto) 0.0 Abs Immat Gran (auto) 0.03 Absolute Neuts (auto) 6.3 Absolute Nucleated RBC 0.000 Nucleated RBC % 0.0 PT INR APTT Sodium Potassium Chloride Carbon Dioxide Anion Gap BUN Creatinine Estim Creat Clear Calc Estimated GFR Glucose POC Capillary Glucose 134 H Hemoglobin A1c 6.5 H Calcium Vancomycin Trough Blood Type Antibody Screen 07/04/24 07/04/24 07/05/24 17:20 19:56 04:04 WBC 10.1 H RBC 4.53 Hgb 13.4 Hct 39.5 MCV 87.2 MCH 29.6 MCHC 33.9 RDW 13.7 Plt Count 315 MPV 8.9 Immature Gran % (Auto) Neut % (Auto) Lymph % (Auto) [place] % (Auto) Eos % (Auto) Baso % (Auto) Lymph # (Auto) [place] # (Auto) Eos # (Auto) Baso # (Auto) Abs Immat Gran (auto) Absolute Neuts (auto) Absolute Nucleated RBC Nucleated RBC % PT 15.2 H INR 1.2 APTT 30.0 Sodium 139 Potassium 3.9 Chloride 107 Carbon Dioxide 28 Anion Gap 4 BUN 17 Creatinine 0.80 Estim Creat Clear Calc 97 Estimated GFR > 60 Glucose 128 H POC Capillary Glucose 157 H 163 H Hemoglobin A1c Calcium 10.3 H Vancomycin Trough 12.5 Blood Type B Positive Antibody Screen Negative 07/05/24 08:15 WBC RBC Hgb Hct MCV MCH MCHC RDW Plt Count MPV Immature Gran % (Auto) Neut % (Auto) Lymph % (Auto) [place] % (Auto) Eos % (Auto) Baso % (Auto) Lymph # (Auto) [place] # (Auto) Eos # (Auto) Baso # (Auto) Abs Immat Gran (auto) Absolute Neuts (auto) Absolute Nucleated RBC Nucleated RBC % PT INR APTT Sodium Potassium Chloride Carbon Dioxide Anion Gap BUN Creatinine Estim Creat Clear Calc Estimated GFR Glucose POC Capillary Glucose 130 H Hemoglobin A1c Calcium Vancomycin Trough Blood Type Antibody Screen Quality VTE Prophylaxis VTE prophylaxis: mechanical ordered
[2024-07-05] MEDS: SODIUM CHLORIDE 0.9% IV 1,000 ML 100 ML IV CONT (09:42)
--- NOTE | 2024-07-05 10:38 | WPDHPUPDATE1 ---
History and Physical Update Update Date/Time: 07/05/24 10:38 History and Physical has been reviewed, including an updated exam of the patient. There are NO changes in the patient's condition. Risks, benefits, and alternatives have been discussed and questions answered. Patient agrees to proceed with procedure. pt would like to proceed with L 5th toe amputation
[2024-07-05 12:05] LABS: Glucose Point of Care 125 mg/dl (65-105)
[2024-07-05] MEDS: LACTATED RINGERS 1,000 ML 30 ML IV CONT (12:50)
[2024-07-05] MEDS: CEFEPIME 2 GM/NS 50 ML 2 GM/50 ML BAG IVPB ×2 (12:55→23:45)
--- NOTE | 2024-07-05 13:32 | WPDANESEPPF ---
Anes - Initial Pre Proc Eval Procedure: Operation Date: 07/05/24 14:30 Proposed Procedures p Left Fifth Toe Amputation - Melba Machado MD Date/Time: 07/05/24 13:32 Surgeon: SHANNAN Meza Pre Op Diagnosis: Diabetic foot infection, osteomyelitis of the toe Patient Data Age: 58 Gender: F Height: 1.75 m Weight: 136.6 kg Last Vital Signs Temp 36.6 C 07/05/24 12:50 Pulse 95 07/05/24 12:50 Resp 18 07/05/24 12:50 BP 149/88 H 07/05/24 12:50 Pulse Ox 100 07/05/24 12:50 O2 Del Method Room Air 07/05/24 12:50 Allergies Allergy/AdvReac Type Severity Reaction Status Date / Time No Known Allergies Allergy Unknown Verified 07/05/24 13:10 Home Medications ?Medication ?Instructions ?Recorded ?Confirmed ?Type empagliflozin 25 mg tablet 25 mg PO DAILY #90 tabs 07/15/23 07/03/24 Rx (Jardiance) insulin lispro 200 unit/mL (3 mL) 20 unit (0.1 mL) subcut TIDWMEAL 07/15/23 07/03/24 Rx subcutaneous pen (Humalog KwikPen #28 mL U-200 Insulin) blood-glucose meter (OneTouch #1 ea 08/03/23 07/03/24 Rx Verio Flex Meter) blood-glucose meter,continuous #1 ea 11/09/23 07/03/24 Rx (Dexcom G7 Station Tender) blood-glucose sensor (Dexcom G7 #9 ea 11/09/23 07/03/24 Rx Sensor device) pen needle, diabetic 32 gauge x #500 ea 01/10/24 07/03/24 Rx /32 (TRUEplus Pen Needle) amitriptyline 50 mg tablet 50 mg PO QHS #90 tabs 02/28/24 07/03/24 Rx pregabalin 75 mg capsule (Lyrica) 75 mg PO BID #60 caps 02/28/24 07/03/24 Rx tirzepatide 7.5 mg/0.5 mL 7.5 mg (0.5 mL) subcut WEEKLY #6 mL 03/20/24 07/03/24 Rx subcutaneous pen injector (oHpe) ibuprofen 800 mg tablet 800 mg PO BID PRN pain #60 tabs 04/28/24 07/03/24 Rx blood sugar diagnostic (OneTouch #100 strips 05/29/24 07/03/24 Rx Verio test strips) lancets 30 gauge (OneTouch Delica #200 ea 06/12/24 07/03/24 Rx Plus Lancet) baclofen 10 mg tablet 10 mg PO BID PRN muscle spasticity 06/30/24 07/03/24 Rx #60 tabs glucagon 1 mg/0.2 mL subcutaneous 1 mg subcut PRN PRN Hypoglycemia 07/03/24 07/03/24 History auto-injector (Gvoke HypoPen 2-Pack) insulin degludec 100 unit/mL (3 30 unit subcut HS 07/03/24 07/03/24 History mL) subcutaneous pen (Tresiba FlexTouch U-100 insulin) lisinopril 20 1 tablet PO DAILY 07/03/24 07/03/24 History mg-hydrochlorothiazide 12.5 mg tablet metformin 500 mg tablet,extended 500 mg PO DAILY 07/03/24 07/03/24 History release 24 hr zolpidem 10 mg tablet (Ambien) 10 mg PO QHS insomnia 07/03/24 07/03/24 History Laboratory Tests 07/04/24 07/04/24 07/05/24 17:20 19:56 04:04 WBC 10.1 H K/mm3 (4.5-10.0) RBC 4.53 M/mm3 (4.2-5.4) Hgb 13.4 g/dL (12.0-15.0) Hct 39.5 % (37.0-47.0) MCV 87.2 fl (80-100) MCH 29.6 pg (26-34) MCHC 33.9 g/dl (32-36) RDW 13.7 % (11.5-14.5) Plt Count 315 k/mm3 (150-375) MPV 8.9 fl (7.4-10.4) PT 15.2 H Seconds (11.1-14.7) INR 1.2 APTT 30.0 Seconds (22.3-36.8) Sodium 139 mmol/L (137-145) Potassium 3.9 mmol/L (3.4-5.0) Chloride 107 mmol/L (98-107) Carbon Dioxide 28 mmol/L (22-30) Anion Gap 4 mmol/L (4-12) BUN 17 mg/dL (7-17) Creatinine 0.80 mg/dL (0.7-1.0) Estim Creat Clear Calc 97 ml/min Estimated GFR > 60 (59 - ) Glucose 128 H mg/dL (65-110) POC Capillary Glucose 157 H mg/dl 163 H mg/dl (65-105) (65-105) Calcium 10.3 H mg/dL (8.4-10.2) Vancomycin Trough 12.5 ug/mL (10.0-20.0) Blood Type B Positive Antibody Screen Negative 07/05/24 07/05/24 08:15 11:35 WBC RBC Hgb Hct MCV MCH MCHC RDW Plt Count MPV PT INR APTT Sodium Potassium Chloride Carbon Dioxide Anion Gap BUN Creatinine Estim Creat Clear Calc Estimated GFR Glucose POC Capillary Glucose 130 H mg/dl 125 H mg/dl (65-105) (65-105) Calcium Vancomycin Trough Blood Type Antibody Screen Patient hx anesthesia problems: none Family hx anesthesia problems: none Results Review: All pre-operative results and documents have been reviewed as part of the pre-operative evaluation. [facility] Past Medical History Medical History Diabetic peripheral neuropathy Insulin dependent type 2 diabetes mellitus Morbid obesity with BMI of 40.0-44.9, adult Hypersomnolence Hyperthyroidism Hyperlipidemia Vitamin D deficiency Hypertension Arthritis Surgical History Surgical History History of total abdominal hysterectomy History of myomectomy History of laparoscopic cholecystectomy (06/2022) History of Family History Family History Mother Carcinoma of colon with mets to the liver and brain Sibling Asthma Esophageal cancer Bone cancer Breast cancer Epilepsy Malignant neoplasm of prostate Other Hypertension Other Alcoholism Cerebrovascular accident Social History Social History Social History: Surrogate medical decision maker: Del Gardiner, rachid. Code status: Full code. Smoking status: Never smoker Alcohol intake: former Alcohol use details: rare, socially Substance use: never Substance use type: does not use Do You Feel Safe in your Home?: Yes Lack of Transportation: No Lack of Food: Never True Current Housing: I Have Housing Concerned About Future Housing: YES Difficulty Paying Gas/Electric Bills: No Difficulty Paying for Meds: No Currently Unemployed: YES Education: Associate Degree Difficulty w/ Childcare or Family Care: No Living arrangements: with family Additional living arrangements comments: Lives with son in [place]. Additional occupation/education comments: [employer]. Spiritual care concerns: No Anes - Eval Final PreProcedure Day of Procedure 07/05/24 13:32 Patient weight: morbidly obese Heart: regular rate and rhythm Lungs: decreased breath sounds Airway: Mallampati scale class II Neurological: alert and oriented Last oral intake: >/= 8 hours ASA classification: III Emergent: no Anesthetic plan: proceed Anesthesia type and monitoring: general GIVS and standard monitoring Results Review: All pre-operative results and documents have been reviewed as part of the pre-operative evaluation. Informed Consent: The patient's anesthetic plan and its attendant risks and benefits were discussed with the patient/family/POA. Questions were solicited and answers provided to the satisfaction of the patient/family/POA.
[2024-07-05] MEDS: LIDOCAINE 1% LOCAL INJ 10 ML VIAL INFILTRATE (14:34)
[2024-07-05 15:02] LABS: Glucose Point of Care 103 mg/dl (65-105)
--- NOTE | 2024-07-05 15:10 | W.PM.PROC2 ---
Procedure Note - Detailed Date of Procedure 07/05/24 Pre-op Diagnosis left 5th toe infection with osteomyelitis Post-op Diagnosis Same Procedure Performed amputation of left 5th toe Surgeon Melba Machado MD Anesthesia MAC and Local Indications 58-year-old female presenting with a diabetic left 5th toe infection with noted osteomyelitis Findings severe swelling and infection of left 5th toe with noted osteomyelitis Description of Procedure The patient was taken to the operating room and placed in the supine position. After adequate induction of MAC anesthesia, the patient was prepped and draped in a normal sterile fashion. A time-out was then done to verify the patient's identity, as well as the procedure being performed. I began by doing a digital block of the left 5th toe. I then made a fishmouth incision to encompass the entirety of the left 5th toe including the infected cyst overlying skin and ulcerations. This was taken down to the level of the proximal phalanx metatarsal joint. I then disarticulated the proximal 5th phalanx with the metatarsal joint. The specimen was then sent to pathology for further review. I then gained hemostasis with the Bovie cautery. The area was washed out and no signs of active infection were noted in the cavity. I then closed the incision with interrupted 2-0 Prolene mattress sutures. Sterile dressing was then placed. The patient tolerated the procedure well. She was alert and awake in the operating room postoperatively. She will be transferred to the recovery room in stable condition. Estimated Blood Loss 10 Pathology Yes Complications No immediate complications Condition Stable Disposition PACU [facility] Billing Surgery - Charge Forward: Surgery Billing
[2024-07-05 17:13] LABS: Glucose Point of Care 91 mg/dl (65-105)
[2024-07-05] MEDS: VANCOMYCIN 2,000 MG/NS 500 ML 2,000 MG/500 ML BAG 150 MG IVPB (17:32)
--- NOTE | 2024-07-05 18:58 | PC.NURSE ---
Patient received dose of Lyrica at 1700 med pass. Patient stated she thinks she forgot to take it and left the pill on her dinner tray which was picked up by dietary staff. RN checked the closet with trays and did not locate the patient's tray. RN then notified chargemaster analyst of the missing med, chargemaster analyst called down to dietary lead who stated all the trays had already been dumped. RN will follow up with nursing management in the morning to find if further action is necessary.
[2024-07-05 20:32] LABS: Glucose Point of Care 145 mg/dl (65-105)
[2024-07-05] MEDS: AMITRIPTYLINE HCL 25 MG TABLET 50 MG PO (20:34)
[2024-07-05] MEDS: ZOLPIDEM TARTRATE (*CRX) 5 MG TABLET 10 MG PO (20:35)
[2024-07-05] MEDS: INSULIN GLARGINE (*BKC) 100 UNITS/ML 30 UNITS SUB-Q (20:37)
[2024-07-06] MEDS: SODIUM CHLORIDE 0.9% IV 1,000 ML 100 ML IV CONT ×2 (04:40→05:06)
[2024-07-06] MEDS: metroNIDAZOLE 500 MG/ISO 100ML 500 MG/100 ML BAG 100 MG IVPB (05:00)
[2024-07-06] MEDS: VANCOMYCIN 2,000 MG/NS 500 ML 2,000 MG/500 ML BAG 150 MG IVPB (06:09)
[2024-07-06 06:23] LABS: Estimated CRCL calculation 111 ml/min; Estimated Glomerular Filt Rate > 60
--- NOTE | 2024-07-06 07:37 | WPDANESPN ---
Anes - Prog Note Post-Op Date/Time: 07/06/24 07:37 Cardiovascular status: normal Respiratory status: normal Airway patency: baseline Mental status: baseline Post-Op hydration status: normal Vital Signs: Last Vital Signs Temp 97.6 F 07/05/24 18:18 Pulse 88 07/05/24 18:18 Resp 17 07/05/24 18:18 BP 152/81 H 07/05/24 18:18 Pulse Ox 99 07/05/24 18:18 O2 Del Method Room Air 07/05/24 20:00 Pain Score (VAS): 0/10 I/O: Intake & Output 07/05/24 07/05/24 07/06/24 15:59 23:59 07:59 Intake Total 750.0 840 1593.3 Output Total 0 Balance 750.0 840 1593.3 Laboratory Tests 07/05/24 04:04 07/06/24 05:40 07/05/24 07/05/24 07/05/24 08:15 11:35 15:00 Creatinine Estim Creat Clear Calc Estimated GFR POC Capillary Glucose 130 H 125 H 103 07/05/24 07/05/24 07/06/24 16:56 20:06 05:40 Creatinine 0.70 Estim Creat Clear Calc 111 Estimated GFR > 60 POC Capillary Glucose 91 145 H Post-procedural complaints: none Patient Feedback: Patient satisfied with anesthetic care.
[2024-07-06 07:57] LABS: Glucose Point of Care 134 mg/dl (65-105)
--- NOTE | 2024-07-06 08:34 | P.PNIM_ITS ---
Progress Note: A&P Assessment and Plan (1) Osteomyelitis of toe of left foot: Code(s): M86.9 - Osteomyelitis, unspecified Status: Acute Assessment and Plan: * Continue abx of Cefepime, Flagyl and Vancomycin. * Surgery was consulted, plan is for Amputation. * Pain control as needed. * Dressing to draining wound on toe. 07/05/24: * Continue IV abx pending OR today. * Pt has been NPO since MN * PRN pain meds. (2) Cellulitis of foot associated with diabetes mellitus: Code(s): E11.628 - Type 2 diabetes mellitus with other skin complications; L03.119 - Cellulitis of unspecified part of limb Status: Acute Assessment and Plan: * See plan for #1 (3) Insulin dependent type 2 diabetes mellitus: Code(s): E11.9 - Type 2 diabetes mellitus without complications; Z79.4 - terminal system operator (current) use of insulin Status: Acute Assessment and Plan: Home meds: Lantus 30 units HS, Jardiance 25mg, Mounjaro * SSI moderate dose * Hypoglycemic protocol * Diabetic diet today, NPO after MN for OR tomorrow. * Continue jardiance * Glucose checks AC and HS 07/05/24: * Continue SSI plan for tighter glucose control and to optimize healing post amputation today. * Fasting Glucose 128 today. Will hold on any changes as pt is currently NPO * Normal saline at 100 ml/hr started for hydration as pt is NPO. (4) Hypertension: Qualifiers: Hypertension type: primary hypertension Qualified Code(s): I10 - Essential (primary) hypertension Code(s): I10 - Essential (primary) hypertension Status: Acute Assessment and Plan: * Continue home medications * Trend VS and adjust as needed 07/05/24: * BP this AM is 126/66, well controlled. * Continue current regimen. Plan OR today with Dr. Machado. Subjective Date/time seen: 07/06/24 08:34 Interval history: s/p amputation of Review of Systems Review of Systems: 12 systems were reviewed and are negativ e except for as per HPI. All systems reviewed & are unremarkable except as noted in HPI and below Exam Narrative: General: Well-developed, nontoxic-appearing female sitting up in bed in no distress. HEENT: PERRL, EOMI. Sclera anicteric. Oral mucosa moist. Oropharynx clear. Neck: Supple. Respiratory: Lungs are clear to auscultation bilaterally. Cardiovascular: Regular rate and rhythm with S1-S2. Gastrointestinal: Abdomen is soft, nontender, and nondistended with positive bowel sounds. Skin: Warm and dry. There is an ulcerated area of the left 5th digit on the dorsum and somewhat into the webspace between the 4th and 5th toes. Purulent drainage is noted. There is surrounding erythema and edema extending onto the dorsum of the foot. Sensation is decreased. Extremities: No cyanosis or clubbing. There is some edema on the dorsum of the left foot. Neurological: Alert. Cranial nerves 2-12 are grossly intact. No gross focal deficits to casual conversation. Psychiatric: Pleasant and cooperative with normal mood and affect. Judgment and insight intact. Objective Data Vital Signs Vital Signs: Vital Signs - 24 hr 07/05/24 09:40 07/05/24 12:50 07/05/24 14:55 Temperature 97.8 F 97.1 F L Pulse Rate 95 94 Respiratory Rate 18 16 Blood Pressure 149/88 H 133/83 Pulse Oximetry 100 98 Oxygen Delivery Room Air Room Air Room Air 07/05/24 15:10 07/05/24 15:25 07/05/24 15:50 Temperature 97.6 F Pulse Rate 88 81 80 Respiratory Rate 16 16 16 Blood Pressure 145/89 H 152/90 H 129/75 Pulse Oximetry 100 100 98 Oxygen Delivery Room Air Room Air 07/05/24 16:23 07/05/24 16:35 07/05/24 18:18 Temperature 97.6 F 97.6 F 97.6 F Pulse Rate 80 79 88 Respiratory Rate 16 16 17 Blood Pressure 136/78 132/73 152/81 H Pulse Oximetry 98 98 99 Oxygen Delivery 07/05/24 20:00 Temperature Pulse Rate Respiratory Rate Blood Pressure Pulse Oximetry Oxygen Delivery Room Air Intake/Output Intake/Output: Intake & Output 07/03/24 07/04/24 07/05/24 07/06/24 23:59 23:59 23:59 23:59 Intake Total 300 2560 1690.0 1593.3 Output Total 0 Balance 300 2560 1690.0 1593.3 Meds/Results Medications: Active Medications Generic Name Dose Route Start Last Admin Trade Name Freq PRN Reason Stop Dose Admin Acetaminophen 650 mg 07/03/24 15:03 Acetaminophen 325 Mg Tablet PO Q4H PRN Mild Pain (1-3) or Fever Hydrocodone Bitart/Acetaminophen 1 tab 07/03/24 15:03 Hydrocodone/Acetaminophen (*Crx) 5-325 Mg Tablet PO Q4H PRN Pain Rated 4-6 Amitriptyline HCl 50 mg 07/04/24 21:00 07/05/24 20:34 Amitriptyline Hcl 25 Mg Tablet PO 50 mg QHS CHUCK Administration Baclofen 10 mg 07/03/24 23:29 Baclofen 10 Mg Tablet PO BID PRN muscle spasticity Dextrose 12.5 gm 07/03/24 23:20 Dextrose 50% 25 Gm/50 Ml Syringe IV PUSH PRN PRN Hypoglycemia Protocol Empagliflozin 25 mg 07/04/24 09:00 07/05/24 16:51 Empagliflozin 25 Mg Tablet PO Not Given DAILY CHUCK Glucagon 1 mg 07/03/24 23:20 Glucagon For Inj 1 Mg Vial IM PRN PRN Hypoglycemia Protocol Glucose 15 gm 07/03/24 23:20 Glucose Oral Gel 15 Gm Of Glucse In 37.5 Gm Tube PO PRN PRN Hypoglycemia Protocol Hydrochlorothiazide 12.5 mg 07/04/24 09:00 07/05/24 16:52 Hydrochlorothiazide 12.5 Mg Capsule PO Not Given QAM CHUCK Cefepime HCl 2 gm in 50 mls @ 100 mls/hr 07/04/24 00:00 07/06/24 00:15 Maxipime 2 Gm/Ns 50 Ml IVPB Infused Q12H CHUCK Infusion Metronidazole 500 mg in 100 mls @ 100 mls/hr 07/03/24 22:00 07/06/24 05:00 Flagyl 500 Mg/Iso Soln 100 Ml IVPB 100 mls/hr Q8H CHUCK Administration Dextrose 1,000 mls @ 100 mls/hr 07/03/24 23:20 Dextrose 5% 1,000 Ml IVPB PRN PRN Hypoglycemia Protocol Vancomycin HCl 2,000 mg in 500 mls @ 250 mls/hr 07/05/24 06:00 07/06/24 06:09 Vancomycin 2,000 Mg/Ns 500 Ml IVPB 150 mls/hr Q12H CHUCK Administration Sodium Chloride 1,000 mls @ 100 mls/hr 07/05/24 08:50 07/06/24 05:06 Normal Saline Iv IV CONT 100 mls/hr .Q10H CHUCK Administration Insulin Aspart 3 - 6 units 07/04/24 08:00 07/05/24 17:27 Insulin Aspart (*Bkc) 100 Units/Ml SUB-Q Not Given TIDWM [facility] Protocol Insulin Aspart 1 - 3 units 07/04/24 21:00 07/05/24 20:40 Insulin Aspart (*Bkc) 100 Units/Ml SUB-Q Not Given HS [facility] Protocol Insulin Glargine 30 units 07/04/24 21:00 07/05/24 20:37 Insulin Glargine (*Bkc) 100 Units/Ml SUB-Q 30 units HS [facility] Administration Lisinopril 20 mg 07/04/24 09:00 07/05/24 16:52 Lisinopril 20 Mg Tablet PO Not Given QAM CHUCK Ondansetron HCl 4 mg 07/03/24 15:03 Ondansetron Inj 4 Mg/2 Ml Vial IV PUSH Q4H PRN Nausea Pregabalin 75 mg 07/04/24 09:00 07/05/24 18:57 Pregabalin (*Crx) 75 Mg Capsule PO Not Given BID CHUCK Zolpidem Tartrate 10 mg 07/04/24 21:00 07/05/24 20:35 Zolpidem Tartrate (*Crx) 5 Mg Tablet PO 10 mg QHS CHUCK Administration Radiology Results: ITS Impressions Foot X-Ray 07/03/24 14:24 IMPRESSION: Findings concerning for osteomyelitis involving the fifth digit. Recommend MRI of the toes without and with contrast for further evaluation. Foot MRI 07/04/24 13:22 IMPRESSION: 1. Osteomyelitis involving the fifth proximal to distal phalanges. Labs Labs: Laboratory Results - last 24 hr 07/05/24 07/05/24 07/05/24 11:35 15:00 16:56 Creatinine Estim Creat Clear Calc Estimated GFR POC Capillary Glucose 125 H 103 91 07/05/24 07/06/24 07/06/24 20:06 05:40 07:33 Creatinine 0.70 Estim Creat Clear Calc 111 Estimated GFR > 60 POC Capillary Glucose 145 H 134 H Quality VTE Prophylaxis VTE prophylaxis: mechanical ordered
[2024-07-06] MEDS: lisinopriL 20 MG TABLET PO (09:27)
[2024-07-06] MEDS: EMPAGLIFLOZIN 25 MG TABLET PO (09:27)
[2024-07-06] MEDS: PREGABALIN (*CRX) 75 MG CAPSULE PO (09:27)
[2024-07-06] MEDS: hydroCHLOROthiazide 12.5 MG CAPSULE PO (09:27)
--- NOTE | 2024-07-06 10:05 | P.PNGS_ITS ---
Progress Note: A&P Assessment and Plan (1) Osteomyelitis of fifth toe of left foot: Code(s): M86.9 - Osteomyelitis, unspecified Status: Acute Assessment and Plan: * S/p left fifth toe amputation. Continue daily dressing changes at home. Patient was educated on wound care, which she is able to do herself. * Continue postop shoe for ambulation * Okay to discharge on oral antibiotics from a surgical standpoint. * Follow-up with Dr. Machado in 2 weeks for suture removal (2) Diabetic foot infection: Code(s): E11.628 - Type 2 diabetes mellitus with other skin complications; L08.9 - Local infection of the skin and subcutaneous tissue, unspecified Status: Acute Plan I have discussed the patient's case and plan of care with Dr. Machado. Subjective Subjective Date/Time Seen: 07/06/24 10:05 Post Op day: 1 (Left fifth toe amputation) Patient reports: no new complaints and afebrile Interval history: Patient did well overnight. No specific complaints. Denies any pain. Wound care nurses at the bedside for dressing change. Exam Narrative: Left fifth toe amputation with incision closed with sutures in place. There is some skin separation of 0.8 cm on the plantar aspect of the incision. No purulence drainage, scant sanguinous drainage on dressing. Erythema and edema of the dorsal foot improved. Objective Data Vital Signs Vital Signs: Vital Signs - 24 hr 07/05/24 12:50 07/05/24 14:55 07/05/24 15:10 Temperature 97.8 F 97.1 F L Pulse Rate 95 94 88 Respiratory Rate 18 16 16 Blood Pressure 149/88 H 133/83 145/89 H Pulse Oximetry 100 98 100 Oxygen Delivery Room Air Room Air Room Air 07/05/24 15:25 07/05/24 15:50 07/05/24 16:23 Temperature 97.6 F 97.6 F Pulse Rate 81 80 80 Respiratory Rate 16 16 16 Blood Pressure 152/90 H 129/75 136/78 Pulse Oximetry 100 98 98 Oxygen Delivery Room Air 07/05/24 16:35 07/05/24 18:18 07/05/24 20:00 Temperature 97.6 F 97.6 F Pulse Rate 79 88 Respiratory Rate 16 17 Blood Pressure 132/73 152/81 H Pulse Oximetry 98 99 Oxygen Delivery Room Air Intake/Output Intake/Output: Intake & Output 12/09/24 12/10/24 12/11/24 12/12/24 23:59 23:59 23:59 23:59 Intake Total 300 2560 1690.0 1593.3 Output Total 0 Balance 300 2560 1690.0 1593.3 Meds/Results Medications: Active Medications Generic Name Dose Route Start Last Admin Trade Name Freq PRN Reason Stop Dose Admin Acetaminophen 650 mg 07/03/24 15:03 Acetaminophen 325 Mg Tablet PO Q4H PRN Mild Pain (1-3) or Fever Hydrocodone Bitart/Acetaminophen 1 tab 07/03/24 15:03 Hydrocodone/Acetaminophen (*Crx) 5-325 Mg Tablet PO Q4H PRN Pain Rated 4-6 Amitriptyline HCl 50 mg 07/04/24 21:00 07/05/24 20:34 Amitriptyline Hcl 25 Mg Tablet PO 50 mg QHS CHUCK Administration Amoxicillin/Clavulanate Potassium 1 tablet 07/07/24 08:00 Amoxicillin/Clavulanate K 875-125 Mg Tab PO Q12HR CHUCK Baclofen 10 mg 07/03/24 23:29 Baclofen 10 Mg Tablet PO BID PRN muscle spasticity Dextrose 12.5 gm 07/03/24 23:20 Dextrose 50% 25 Gm/50 Ml Syringe IV PUSH PRN PRN Hypoglycemia Protocol Doxycycline Hyclate 100 mg 07/07/24 07:00 Doxycycline Hyclate 100 Mg Tablet PO Q12HR CHUCK Empagliflozin 25 mg 07/04/24 09:00 07/06/24 09:27 Empagliflozin 25 Mg Tablet PO 25 mg DAILY CHUCK Administration Glucagon 1 mg 07/03/24 23:20 Glucagon For Inj 1 Mg Vial IM PRN PRN Hypoglycemia Protocol Glucose 15 gm 07/03/24 23:20 Glucose Oral Gel 15 Gm Of Glucse In 37.5 Gm Tube PO PRN PRN Hypoglycemia Protocol Hydrochlorothiazide 12.5 mg 07/04/24 09:00 07/06/24 09:27 Hydrochlorothiazide 12.5 Mg Capsule PO 12.5 mg QAM CHUCK Administration Cefepime HCl 2 gm in 50 mls @ 100 mls/hr 07/04/24 00:00 07/06/24 00:15 Maxipime 2 Gm/Ns 50 Ml IVPB 07/06/24 23:59 Infused Q12H CHUCK Infusion Dextrose 1,000 mls @ 100 mls/hr 07/03/24 23:20 Dextrose 5% 1,000 Ml IVPB PRN PRN Hypoglycemia Protocol Vancomycin HCl 2,000 mg in 500 mls @ 250 mls/hr 07/05/24 06:00 07/06/24 06:09 Vancomycin 2,000 Mg/Ns 500 Ml IVPB 07/06/24 23:59 150 mls/hr Q12H CHUCK Administration Sodium Chloride 1,000 mls @ 100 mls/hr 07/05/24 08:50 07/06/24 05:06 Normal Saline Iv IV CONT 100 mls/hr .Q10H CHUCK Administration Insulin Aspart 3 - 6 units 07/04/24 08:00 07/06/24 09:26 Insulin Aspart (*Bkc) 100 Units/Ml SUB-Q Not Given TIDWM [facility] Protocol Insulin Aspart 1 - 3 units 07/04/24 21:00 07/05/24 20:40 Insulin Aspart (*Bkc) 100 Units/Ml SUB-Q Not Given HS [facility] Protocol Insulin Glargine 30 units 07/04/24 21:00 07/05/24 20:37 Insulin Glargine (*Bkc) 100 Units/Ml SUB-Q 30 units HS CHUCK Administration Lisinopril 20 mg 07/04/24 09:00 07/06/24 09:27 Lisinopril 20 Mg Tablet PO 20 mg QAM CHUCK Administration Metronidazole 500 mg 07/06/24 14:00 Metronidazole 500 Mg Tablet PO 07/06/24 22:01 Q8HR [facility] Ondansetron HCl 4 mg 07/03/24 15:03 Ondansetron Inj 4 Mg/2 Ml Vial IV PUSH Q4H PRN Nausea Pregabalin 75 mg 07/04/24 09:00 07/06/24 09:27 Pregabalin (*Crx) 75 Mg Capsule PO 75 mg BID CHUCK Administration Zolpidem Tartrate 10 mg 07/04/24 21:00 07/05/24 20:35 Zolpidem Tartrate (*Crx) 5 Mg Tablet PO 10 mg QHS CHUCK Administration Radiology Results: ITS Impressions Foot X-Ray 07/03/24 14:24 IMPRESSION: Findings concerning for osteomyelitis involving the fifth digit. Recommend MRI of the toes without and with contrast for further evaluation. Foot MRI 07/04/24 13:22 IMPRESSION: 1. Osteomyelitis involving the fifth proximal to distal phalanges. Labs Labs: Laboratory Results - last 24 hr 07/05/24 07/05/24 07/05/24 11:35 15:00 16:56 Creatinine Estim Creat Clear Calc Estimated GFR POC Capillary Glucose 125 H 103 91 07/05/24 07/06/24 07/06/24 20:06 05:40 07:33 Creatinine 0.70 Estim Creat Clear Calc 111 Estimated GFR > 60 POC Capillary Glucose 145 H 134 H
[2024-07-06] MEDS: CEFEPIME 2 GM/NS 50 ML 2 GM/50 ML BAG IVPB (10:48)
[2024-07-06 11:26] LABS: Glucose Point of Care 149 mg/dl (65-105)
--- NOTE | 2024-07-06 12:47 | PM.DS ---
DS: Admitting Diagnosis Discharge Date 07/06/2024 Admitting Diagnosis Left Toe osteomyelitis DS: Discharge Diagnosis Discharge Diagnosis (1) Diabetic infection of left foot: Code(s): E11.628 - Type 2 diabetes mellitus with other skin complications; L08.9 - Local infection of the skin and subcutaneous tissue, unspecified Status: Acute (2) Acute osteomyelitis of toe of left foot: Code(s): M86.172 - Other acute osteomyelitis, left ankle and foot Status: Acute DS: Summary Hospital Course Reason for hospitalization: Copied from [facility] 07/03: This is a pleasant 58-year-old female with insulin-dependent type 2 diabetes mellitus, diabetic peripheral neuropathy, hypertension, and hyperlipidemia who presented to the emergency department via private vehicle for evaluation of a left toe wound. The patient provides the following history. She noticed a small wound pop up about a week ago on her left 5th toe which has gotten increasingly worse over the past 5 days. The area is now red, swollen, and is draining. She does not recall injuring the area. She otherwise feels okay and denies fever, chills, sweats, nausea, and vomiting. In the ED: She was afebrile on arrival with stable vital signs though blood pressures have been running a bit high. Labs are significant for WBC count of 9.9, CRP 4.4, glucose 73, calcium 10.8. Foot x-ray showed findings concerning for osteomyelitis of the 5th digit. She was given cefepime, metronidazole, and vancomycin is being admitted in this setting for further IV antibiotics and surgery consultation. Hospital Course: The patient was admitted for acute osteomyelitis, diabetic foot infection Acute Osteomyelitis S/p left fifth toe amputation 07/05 with minimal pain. Continue daily dressing changes at home. Patient was educated on wound care, which she is able to do herself. Continued postop shoe for ambulation Continued Augmentin and doxycyline BID for 2 weeks. Follow-up with Dr. Machado in 2 weeks for suture removal Status at Discharge Cognitive/behavioral status at discharge: A&Ox4 Time Spent with Patient Time attestation: Total time spent providing and/or coordinating discharge services: 65 minutes Exam Narrative: General - Awake and alert. No acute distress Eyes - PERRLA, EOM intact ENT - No thrush, No erythema Neck - No noticeable or palpable swelling Lymph Nodes - No lymphadenopathy Cardiovascular - RRR no m/r/g, no JVD Lungs: Clear to auscultation, No wheezing, use of accessory muscles, no crackles Skin - Skin warm and dry, or rashes. Left toe wound s/p amputation Abdomen - Normal bowel sounds, abdomen soft and nontender Extremities - No edema, cyanosis or clubbing Musculoskeletal - 5/5 strength, normal range of motion, no swollen or erythematous joints. Neurological ? Alert and oriented x 3, CN 2-12 grossly intact. Psych: Normal mood and affect DS: Data Data Completed and Pending Pending studies at discharge: Pending at discharge 07/05/24 14:34 Surgical [PTH] Routine Labs on day of discharge: Labs from last 24 hours 07/06/24 07/06/24 07/06/24 11:22 07:33 05:40 Creatinine 0.70 Estim Creat Clear Calc 111 Estimated GFR > 60 POC Capillary Glucose 149 H 134 H 07/05/24 07/05/24 07/05/24 20:06 16:56 15:00 Creatinine Estim Creat Clear Calc Estimated GFR POC Capillary Glucose 145 H 91 103 Discharge Plan Discharge Attending physician on discharge: Amanda Lee Consulting providers: Melba Machado; Ame Bergeron; Constanza Simmons; Vianca Bernard; Sanjay Gillette; Cam Jiménez Jr.; Sam Martínez; Aayush Cobos Discharging Clinician: Amanda Lee Anticipated Discharge Date/Time: 07/06/24 12:39 Patient Disposition: Home Health Service Activity: may shower and other - see discharge instructions Diet: diabetic Wound Care Instructions: change dressing daily and other - see discharge instructions Discharge Instructions: Surgery discharge instructions Follow-up with Dr. Machado in 2 weeks for suture removal. Our office will call you with time and date of appointment. Call sooner with any questions or concerns. Wear the postop shoe on your left foot with any walking or activity. You may shower over your incision when he remove your dressing. Use mild soap and water. Then apply Xeroform gauze to the incision and cover with 4 x 4 gauze or an ABD and rolled gauze to keep in place. Follow up with your PCP in 1-2 weeks. Other medications continued. Acetaminophen first for pain. OK to use ibuprofen rarely, lowest effective dose to help protect your kidneys and not for more than a few days Per Care Coordination [facility] to call and schedule RN initial visit ([phone]) for wound care instruction and assessment Patient Instructions: Antibiotic Form, Doxycycline (By mouth), Amoxicillin (By mouth) Patient Language: Cymro Stand Alone Forms: General Discharge Information Follow-up/Referrals: Melba Machado MD [Physician] - 2 Weeks Discharge Medications: New acetaminophen 325 mg Tablet 650 mg PO Q4H PRN (Reason: Mild Pain (1-3) Or Fever) Qty: 60 0RF doxycycline hyclate 100 mg Tablet 100 mg PO Q12HR 14 Days Qty: 28 0RF ibuprofen 600 mg tablet 600 mg PO .bid prn Qty: 30 0RF amoxicillin-pot clavulanate 875-125 mg tablet 1 tablet PO Q12H Qty: 28 0RF Continued pregabalin [Lyrica] 75 mg capsule 75 mg PO BID Qty: 60 2RF amitriptyline 50 mg tablet 50 mg PO QHS Qty: 90 1RF Humalog KwikPen Insulin 200 unit/mL (3 mL) insulin pen 20 unit subcut TIDWMEAL Qty: 28 3RF Jardiance 25 mg tablet 25 mg PO DAILY Qty: 90 3RF (DME) Dexcom G7 Sensor Device See Rx Instructions .ROUTE .MEDSUPPLY Qty: 9 3RF Rx Instructions: Use to monitor glcuose (DME) Dexcom G7 Aircraft Engine Mechanic Overhaul Misc See Rx Instructions .Route Qty: 1 3RF Rx Instructions: As directed lisinopril-hydrochlorothiazide 20-12.5 mg tablet 1 tablet PO DAILY Gvoke HypoPen 2-Pack 1 mg/0.2 mL auto-injector 1 mg SUBCUT PRN PRN (Reason: Hypoglycemia) Rx Instructions: after 15 minutes, dose can be repeated zolpidem [Ambien] 10 mg tablet 10 mg PO QHS metformin 500 mg tablet extended release 24 hr 500 mg PO DAILY insulin degludec [Tresiba FlexTouch U-100] 100 unit/mL (3 mL) insulin pen 30 unit subcut HS (DME) blood-glucose meter [OneTouch Verio Flex meter] Misc See Rx Instructions .ROUTE .COMPLEX Qty: 1 0RF Dose Instruction: USE TO MONITOR GLUCOSE 3-4 TIMES A DAY Rx Instructions: USE TO MONITOR GLUCOSE 3-4 TIMES A DAY (DME) pen needle, diabetic [TRUEplus Pen Needle] 32 gauge x 5/32 needle See Rx Instructions .Route Qty: 500 1RF Rx Instructions: Use with insulin pen 5 times daily Mounjaro 7.5 mg/0.5 mL pen injector 7.5 mg subcut WEEKLY Qty: 6 1RF Rx Instructions: takes on Wednesday (DME) OneTouch Verio test strips Strip See Rx Instructions .ROUTE .COMPLEX Qty: 100 2RF Dose Instruction: USE TO MONITOR GLUCOSE 3-4 TIMES A DAY Rx Instructions: USE TO MONITOR GLUCOSE 3-4 TIMES A DAY (DME) lancets [OneTouch Delica Plus Lancet] 30 gauge misc See Rx Instructions .ROUTE .COMPLEX Qty: 200 3RF Dose Instruction: USE TO MONITOR GLUCOSE 3-4 TIMES A DAY Rx Instructions: USE TO MONITOR GLUCOSE 3-4 TIMES A DAY baclofen 10 mg tablet 10 mg PO BID PRN (Reason: muscle spasticity) Qty: 60 0RF Discontinued ibuprofen 800 mg tablet 800 mg PO BID PRN (Reason: pain) Qty: 60 0RF Date of admission: 07/03/24 15:54 Primary Care Provider: Lacho Muniz Admitting Provider: Stanley Ramirez Attending physician on admission: Amanda Lee Condition: Stable Quality VTE Prophylaxis VTE prophylaxis: pharmacologic ordered Hospitalist MIPS Heart Failure (Exclusion) Patient has history of Heart Transplant or Left Ventricular Assistive Device?: No IF YES, STOP HERE Heart Failure (Qualifier) Patient has current or prior documentation of LVEF less than or equal to 40%, or mod/servere depressed LVSF?: No IF NO, STOP HERE
[2024-07-06] MEDS: metroNIDAZOLE 500 MG TABLET PO (13:41)
== END 2024-07-06 15:05 | disposition home or self-care (01) | DRG 314 ==
LOC: ANHED 15:03 → ANH2MED 16:49
PROVIDERS: Nurse Practitioner Adult Health; Nurse Practitioner Family; Physician Assistant; Surgery; Admitting Provider General Practice; Emergency Provider Emergency Medicine; PCP Internal Medicine; Visit Provider Nurse Practitioner Acute Care
PROC: 0Y6Y0Z0 Detachment at Left 5th Toe, Complete, Open Approach (ICD-10-PCS; principal; 2024-07-05 14:30)
DX: E11.69 Type 2 diabetes mellitus with other specified complication (principal); M86.172 Other acute osteomyelitis, left ankle and foot; L97.529 Non-pressure chronic ulcer of other part of left foot with unspecified severity; E11.42 Type 2 diabetes mellitus with diabetic polyneuropathy; E11.621 Type 2 diabetes mellitus with foot ulcer; E03.9 Hypothyroidism, unspecified; E66.01 Morbid (severe) obesity due to excess calories; E78.5 Hyperlipidemia, unspecified; E55.9 Vitamin D deficiency, unspecified; I10 Essential (primary) hypertension; Z79.85 Long-term (current) use of injectable non-insulin antidiabetic drugs; Z79.4 Long term (current) use of insulin; Z79.84 Long term (current) use of oral hypoglycemic drugs; Z68.41 Body mass index [BMI] 40.0-44.9, adult; Z90.49 Acquired absence of other specified parts of digestive tract
CPT/HCPCS: 36415; 73630; 73720; 80048; 80053; 80202; 82565; 82948; 83036; 83735; 85025; 85027; 85610; 85652; 85730; 86140; 86850; 86900; 86901; 88305; 88311; 99285; A9270; A9577; J0692; J1815; J1836; J2003; J2704; J3010; J3370; J7030; J7120